=== PATIENT | male | born 1960 | race Caucasian/White ===

== ENCOUNTER 2017-08-31 21:49 | Emergency (ER) | payer MEDICAID ==
[~2017-08-31] VITALS: Ht 167.6 cm; Wt 113.4 kg
[2017-08-31 22:00] VITALS: BP 149/82
[2017-08-31 22:20] LABS: Basophils # (auto) 0.1 uL; Eosinophils # (auto) 0.2 uL; Eosinophils % (auto) 3.1 % (0.0-7.0); Monocytes # (auto) 0.6 uL; Neutrophils # (auto) 3.4 uL; Nucleated Red Blood Cells % 0.1 %; White Blood Cell 6.3 10^3/uL (4.4-10.8)
[2017-08-31 22:22] LABS: Basophils % (auto) 2.3 % (0.0-2.0); Hematocrit 42.2 % (41.0-53.0); Lymphocytes # (auto) 1.9 uL; Mean Corpuscular Hemoglobin 35.7 pg (28.0-32.0); Mean Corpuscular Hgb Conc. 35.6 g/dL (32.0-36.0); Mean Corpuscular Volume 100.2 fL (80.0-100.0); Monocytes % (auto) 9.5 % (0.0-12.0); Neutrophils % (auto) 54.1 % (37.0-80.0); Platelet Count (auto) 210 10^3/uL (140-450); Red Blood Cells 4.21 10^6/uL (4.5-5.90); Red Cell Distribution Width 13.6 % (11.8-14.3)
[2017-08-31 22:44] LABS: Alanine Aminotransferase 34 U/L (16-61); Albumin 3.5 g/dL (3.4-5.0); Anion Gap 10 (5-15); Aspartate Aminotransferase 26 U/L (15-37); BUN/Creatinine Ratio 14.6; Blood Urea Nitrogen 15 mg/dL (7-18); Calcium 9.4 mg/dL (8.5-10.1); Carbon Dioxide 30 mmol/L (21-32); Chloride 99 mmol/L (98-107); GFR African American 96 mL/min; GFR Non-African American 79 mL/min; Glucose 203 mg/dL (74-106); Magnesium 1.9 mg/dL (1.6-2.6); Potassium 4.7 mmol/L (3.5-5.1); Sodium 139 mmol/L (136-145)
[2017-08-31 22:48] LABS: Alkaline Phosphatase 54 U/L (45-117); Bilirubin, Total 0.3 mg/dL (0.2-1.0); Total Protein 7.8 g/dL (6.4-8.2)
== END 2017-09-01 | disposition left against medical advice (07) ==
LOC: ER 21:49
DX: R29.810 Facial weakness (principal); Z53.21 Procedure and treatment not carried out due to patient leaving prior to being seen by health care provider
CPT/HCPCS: 36415; 70450; 80053; 83735; 84484; 85025; 93005

== ENCOUNTER 2021-11-17 05:34 | Inpatient (IN) | payer BC, MEDICAID ==
[2021-11-17] VITALS (20 sets, daily range): BP systolic 114–151; BP diastolic 70–96
[~2021-11-17] VITALS: Ht 167.6 cm; Wt 116.5 kg
[2021-11-17] MEDS ORDERED: CLOPIDOGREL BISULFATE 75 MG TAB ONE ×2 (05:38→05:42)
[2021-11-17] MEDS ORDERED: HEPARIN SODIUM (PORCINE) 5000 UNITS/ML 1ML VIAL ONE ×2 (05:39→06:07)
[2021-11-17] MEDS ORDERED: HEPARIN SODIUM (PORCINE) 5000 UNITS/ML 1ML VIAL IV ONE (06:00)
[2021-11-17] MEDS ORDERED: CLOPIDOGREL BISULFATE 75 MG TAB PO ONE (06:00)
[2021-11-17] MEDS ORDERED: VERAPAMIL 2.5MG/ML INJ 2ML VIAL IV ONE (06:07)
[2021-11-17] MEDS ORDERED: ANGIOMAX 250 MG VIAL IV ONE (06:08)
[2021-11-17] MEDS ORDERED: MIDAZOLAM HCL 2MG/2ML 2ml VIAL (1mg/ml) ONE (06:08)
[2021-11-17] MEDS ORDERED: fentaNYL CITRATE 100 MCG/2 ML VL ONE (06:08)
[2021-11-17] MEDS ORDERED: LIDOCAINE 2%HCL (LOCAL ANESTH.) INJ 20ML MDV ONE (06:08)
[2021-11-17] MEDS ORDERED: SODIUM CHL 0.9% 0 ML ONE (06:09)
[2021-11-17] MEDS ORDERED: IODIXANOL 320MG/ML 100ML BTL IV ONE ×3 (06:10→07:54)
[2021-11-17 06:14] LABS: Albumin 2.8 g/dL (3.4-5.0); Calcium 8.9 mg/dL (8.5-10.1)
[2021-11-17 06:15] LABS: BUN/Creatinine Ratio 11.9
[2021-11-17] MEDS ORDERED: DOCUSATE SOD 100 MG CAP PO PRN ×2 (06:15→06:30)
[2021-11-17] MEDS ORDERED: ACETAMINOPHEN 325 MG TAB PO PRN ×2 (06:15→06:30)
[2021-11-17] MEDS ORDERED: HYDROcodone-ACET 5/325MG TAB PO PRN (06:15)
[2021-11-17] MEDS ORDERED: MORPHINE SULFATE INJ 2 MG/ml SYRG IV PRN ×3 (06:15→08:00)
[2021-11-17] MEDS ORDERED: NITROGLYCERIN 0.4 MG SL TAB SL PRN ×3 (06:15→08:00)
[2021-11-17] MEDS ORDERED: IPRATROPIUM BROM 0.5 MG/2.5ML INH SOL NEB PRN ×2 (06:15→06:30)
[2021-11-17] MEDS ORDERED: ALBUTEROL SULF 2.5 MG/0.5ML(0.5%) NEB SOLN NEB PRN ×2 (06:15→06:30)
[2021-11-17] MEDS ORDERED: ONDANSETRON HCL 4 MG/2 ML VIAL IV PRN ×2 (06:15→06:30)
[2021-11-17] MEDS ORDERED: SODIUM CHLORIDE 0.9% 1,000 ML IV SCH (06:15)
[2021-11-17] MEDS ORDERED: DEXTROSE (50%) 50ML SYRG IV PRN ×3 (06:15→08:15)
[2021-11-17 06:21] LABS: Basophils # (auto) 0.1 10 ^3/uL (0-0.2); Basophils % (auto) 0.5 % (0.0-2.0); Eosinophils # (auto) 0 10 ^3/uL (0-0.8); Eosinophils % (auto) 0.2 % (0.0-7.0); Hemoglobin 15.7 g/dL (13.5-17.5); Lymphocytes # (auto) 2.1 10 ^3/uL (0.4-5.4); Monocytes # (auto) 0.9 10 ^3/uL (0-1.3); Nucleated Red Blood Cells % 0.1 %
[2021-11-17 06:22] LABS: Hematocrit 46.4 % (41.0-53.0); Lymphocytes % (auto) 21.2 % (10.0-50.0); Mean Corpuscular Hemoglobin 35.1 pg (28.0-32.0); Mean Corpuscular Hgb Conc. 33.9 g/dL (32.0-36.0); Mean Corpuscular Volume 103.7 fL (80.0-100.0); Monocytes % (auto) 9.1 % (0.0-12.0); Red Blood Cells 4.48 10^6/uL (4.5-5.90); Red Cell Distribution Width 13.8 % (11.8-14.3); White Blood Cell 10.1 10^3/uL (4.4-10.8)
[2021-11-17 06:24] LABS: Total Protein 7.4 g/dL (6.4-8.2)
[2021-11-17] MEDS ORDERED: InsuLIN REG 1unit/0.01ml Soln (100units/ml) SC SCH ×4 (07:00→22:00)
[2021-11-17] MEDS ORDERED: ACCU-CHEK COMFORT CURVE STRIP VI SCH ×2 (07:00→07:15)
[2021-11-17] MEDS ORDERED: ALBUMIN 25% 100 ML IV ONE (07:00)
[2021-11-17] MEDS ORDERED: TICAGRELOR 90 MG TAB ONE (08:08)
[2021-11-17] MEDS: SODIUM CHLORIDE 0.9% 1,000 ML IV SCH ×2 (09:00→21:39)
[2021-11-17] MEDS ORDERED: GABAPENTIN 100 MG CAP ONE (09:50)
[2021-11-17] MEDS ORDERED: FAMOTIDINE (10MG/ML) 2ML VL IV SCH (10:00)
[2021-11-17] MEDS ORDERED: ASPirin 81 mg TAB PO SCH ×2 (10:00)
[2021-11-17] MEDS: ASPirin 81 mg TAB PO SCH (10:36)
[2021-11-17] MEDS: HYDROcodone-ACET 5/325MG TAB PO PRN ×2 (10:37→21:40)
[2021-11-17] MEDS: FAMOTIDINE (10MG/ML) 2ML VL IV SCH (10:38)
[2021-11-17] MEDS: LISINOPRIL 5 MG TAB PO SCH (10:38)
[2021-11-17] MEDS: ACCU-CHEK COMFORT CURVE STRIP VI SCH ×3 (11:30→21:41)
[2021-11-17] MEDS: InsuLIN REG 1unit/0.01ml Soln (100units/ml) SC SCH ×3 (11:45→21:48)
[2021-11-17] MEDS ORDERED: HEPARIN SODIUM (PORCINE) 5000 UNITS/ML 1ML VIAL SC SCH (14:00)
[2021-11-17] MEDS: GABAPENTIN 300 MG CAP PO SCH ×2 (14:46→21:40)
[2021-11-17] MEDS: HEPARIN SODIUM (PORCINE) 5000 UNITS/ML 1ML VIAL SC SCH ×2 (14:46→21:39)
[2021-11-17 15:57] LABS: Urine Bacteria FEW /hpf (None Seen); Urine Blood 3+ /uL (Negative); Urine Mucus FEW (None Seen); Urine WBC 9 /hpf (0 - 3)
[2021-11-17 16:04] LABS: Urine Specific Gravity > 1.050 (1.001-1.035)
[2021-11-17 16:07] LABS: Protein, Urine 95.9 mg/dL (0.0-11.9)
[2021-11-17] MEDS ORDERED: GABA300C10 PO (19:01)
[2021-11-17] MEDS ORDERED: ROPI0.5T18 PO (19:01)
[2021-11-17] MEDS ORDERED: RABE20TA19 PO (19:01)
[2021-11-17] MEDS ORDERED: TRAM50TA2 PO (19:01)
[2021-11-17] MEDS: TICAGRELOR 90 MG TAB PO SCH (21:39)
[2021-11-17] MEDS: ATORVASTATIN 20 MG TAB PO SCH (21:40)
[2021-11-18] VITALS (26 sets, daily range): BP systolic 91–122; BP diastolic 52–79
[2021-11-18] MEDS: ACCU-CHEK COMFORT CURVE STRIP VI SCH ×4 (06:02→21:14)
[2021-11-18] MEDS: InsuLIN REG 1unit/0.01ml Soln (100units/ml) SC SCH ×4 (06:02→21:20)
[2021-11-18] MEDS: GABAPENTIN 300 MG CAP PO SCH ×3 (06:03→21:12)
[2021-11-18] MEDS: HEPARIN SODIUM (PORCINE) 5000 UNITS/ML 1ML VIAL SC SCH (06:03)
[2021-11-18 06:15] LABS: Basophils # (auto) 0 10 ^3/uL (0-0.2); Basophils % (auto) 0.5 % (0.0-2.0); Eosinophils # (auto) 0.1 10 ^3/uL (0-0.8); Eosinophils % (auto) 0.8 % (0.0-7.0); Lymphocytes # (auto) 1.5 10 ^3/uL (0.4-5.4); Mean Corpuscular Hgb Conc. 33.5 g/dL (32.0-36.0); Red Cell Distribution Width 13.7 % (11.8-14.3)
[2021-11-18 06:18] LABS: Hematocrit 44.3 % (41.0-53.0); Hemoglobin 14.9 g/dL (13.5-17.5); Lymphocytes % (auto) 20.1 % (10.0-50.0); Mean Corpuscular Hemoglobin 35.1 pg (28.0-32.0); Mean Corpuscular Volume 104.6 fL (80.0-100.0); Monocytes # (auto) 0.8 10 ^3/uL (0-1.3); Monocytes % (auto) 10.2 % (0.0-12.0); Neutrophils # (auto) 5.2 10 ^3/uL (1.6-8.6); Neutrophils % (auto) 68.4 % (37.0-80.0); Nucleated Red Blood Cells % 0.1 %; Red Blood Cells 4.23 10^6/uL (4.5-5.90); White Blood Cell 7.5 10^3/uL (4.4-10.8)
[2021-11-18 06:25] LABS: Calcium 8.4 mg/dL (8.5-10.1); Potassium 4.6 mmol/L (3.5-5.1)
[2021-11-18 06:27] LABS: BUN/Creatinine Ratio 18.6; Phosphorus 3.6 mg/dL (2.5-4.90)
[2021-11-18 06:30] LABS: INR 1.13 (0.9-1.15)
[2021-11-18] MEDS: LISINOPRIL 5 MG TAB PO SCH (10:00)
[2021-11-18] MEDS: FAMOTIDINE (10MG/ML) 2ML VL IV SCH (10:29)
[2021-11-18] MEDS: TICAGRELOR 90 MG TAB PO SCH ×2 (10:30→21:12)
[2021-11-18] MEDS: ASPirin 81 mg TAB PO SCH (10:30)
[2021-11-18] MEDS: SODIUM CHLORIDE 0.9% 1,000 ML IV SCH (14:03)
[2021-11-18] MEDS: ATORVASTATIN 20 MG TAB PO SCH (21:12)
[2021-11-19] VITALS (23 sets, daily range): BP systolic 85–155; BP diastolic 48–95
[2021-11-19] MEDS ORDERED: TEMAZEPAM 15 MG CAP PO ONE (00:45)
[2021-11-19] MEDS: GABAPENTIN 300 MG CAP PO SCH ×3 (06:22→21:33)
[2021-11-19] MEDS: ACCU-CHEK COMFORT CURVE STRIP VI SCH ×4 (06:23→21:49)
[2021-11-19] MEDS: InsuLIN REG 1unit/0.01ml Soln (100units/ml) SC SCH ×4 (06:26→21:53)
[2021-11-19] MEDS: SODIUM CHLORIDE 0.9% 1,000 ML IV SCH (06:27)
[2021-11-19] MEDS: TICAGRELOR 90 MG TAB PO SCH ×2 (10:14→21:33)
[2021-11-19] MEDS: ASPirin 81 mg TAB PO SCH (10:14)
[2021-11-19] MEDS: FAMOTIDINE (10MG/ML) 2ML VL IV SCH (10:15)
[2021-11-19 10:36] LABS: Basophils # (auto) 0 10 ^3/uL (0-0.2); Basophils % (auto) 0.4 % (0.0-2.0); Eosinophils # (auto) 0.1 10 ^3/uL (0-0.8); Eosinophils % (auto) 2.3 % (0.0-7.0); Hematocrit 43.6 % (41.0-53.0); Hemoglobin 14.7 g/dL (13.5-17.5); Lymphocytes % (auto) 15.2 % (10.0-50.0); Mean Corpuscular Hemoglobin 35.2 pg (28.0-32.0); Mean Corpuscular Hgb Conc. 33.8 g/dL (32.0-36.0); Mean Corpuscular Volume 103.9 fL (80.0-100.0); Monocytes # (auto) 0.6 10 ^3/uL (0-1.3); Monocytes % (auto) 8.5 % (0.0-12.0); Neutrophils # (auto) 4.8 10 ^3/uL (1.6-8.6); Neutrophils % (auto) 73.6 % (37.0-80.0); Nucleated Red Blood Cells % 0.1 %; Red Blood Cells 4.19 10^6/uL (4.5-5.90); Red Cell Distribution Width 13.6 % (11.8-14.3); White Blood Cell 6.5 10^3/uL (4.4-10.8)
[2021-11-19 10:55] LABS: Calcium 8.2 mg/dL (8.5-10.1); Potassium 4.5 mmol/L (3.5-5.1)
[2021-11-19 12:03] LABS: INR 1.1 (0.9-1.15); Partial Thromboplastin Time 28.5 sec (24.6-33.4)
[2021-11-19] MEDS ORDERED: LIDOCAINE 2%HCL (LOCAL ANESTH.) INJ 10ml MDV ONE (12:23)
[2021-11-19] MEDS ORDERED: MIDAZOLAM HCL 2MG/2ML 2ml VIAL (1mg/ml) ONE (12:33)
[2021-11-19] MEDS ORDERED: fentaNYL CITRATE 100 MCG/2 ML VL ONE (12:33)
[2021-11-19] MEDS ORDERED: VANCOMYCIN HCL 1000 MG VL ONE (12:33)
[2021-11-19] MEDS ORDERED: VANCOMYCIN 1GM/250ML 250 ML IV ONE (12:34)
[2021-11-19] MEDS ORDERED: ACETAMINOPHEN 325 MG TAB PO PRN (14:00)
[2021-11-19] MEDS: ATORVASTATIN 20 MG TAB PO SCH (21:33)
[2021-11-19] MEDS: HYDROcodone-ACET 5/325MG TAB PO PRN (21:33)
[2021-11-20] VITALS (21 sets, daily range): BP systolic 98–160; BP diastolic 50–91
[2021-11-20 04:16] LABS: Albumin 2.2 g/dL (3.4-5.0); Potassium 4.5 mmol/L (3.5-5.1)
[2021-11-20 04:19] LABS: BUN/Creatinine Ratio 25.2; Bilirubin, Total 0.9 mg/dL (0.2-1.0); Total Protein 6.3 g/dL (6.4-8.2)
[2021-11-20] MEDS: GABAPENTIN 300 MG CAP PO SCH ×3 (06:17→21:33)
[2021-11-20] MEDS: ACCU-CHEK COMFORT CURVE STRIP VI SCH ×4 (06:17→21:33)
[2021-11-20] MEDS: InsuLIN REG 1unit/0.01ml Soln (100units/ml) SC SCH ×4 (06:55→21:42)
[2021-11-20] MEDS: FAMOTIDINE (10MG/ML) 2ML VL IV SCH (09:31)
[2021-11-20] MEDS: ASPirin 81 mg TAB PO SCH (09:31)
[2021-11-20] MEDS: TICAGRELOR 90 MG TAB PO SCH ×2 (09:31→21:32)
[2021-11-20] MEDS ORDERED: FUROSEMIDE 20 MG/2 ML VIAL IV ONE (10:00)
[2021-11-20] MEDS: CARVEDILOL 3.125 MG TAB PO SCH ×2 (10:35→21:33)
[2021-11-20] MEDS ORDERED: ARTIFICIAL TEARS 15ml EACHEYE PRN (13:15)
[2021-11-20] MEDS: FUROSEMIDE 20 MG/2 ML VIAL IV SCH (14:18)
[2021-11-20] MEDS: HYDROcodone-ACET 5/325MG TAB PO PRN (21:08)
[2021-11-20] MEDS: ATORVASTATIN 20 MG TAB PO SCH (21:33)
[2021-11-21] VITALS (10 sets, daily range): BP systolic 103–144; BP diastolic 60–85
[2021-11-21 05:28] LABS: Basophils # (auto) 0 10 ^3/uL (0-0.2); Eosinophils # (auto) 0.3 10 ^3/uL (0-0.8); Eosinophils % (auto) 4.5 % (0.0-7.0); Hemoglobin 14.3 g/dL (13.5-17.5); Monocytes # (auto) 0.7 10 ^3/uL (0-1.3); Neutrophils # (auto) 3.7 10 ^3/uL (1.6-8.6); White Blood Cell 5.9 10^3/uL (4.4-10.8)
[2021-11-21 05:30] LABS: Basophils % (auto) 0.5 % (0.0-2.0); Hematocrit 41.3 % (41.0-53.0); Lymphocytes # (auto) 1.2 10 ^3/uL (0.4-5.4); Lymphocytes % (auto) 20.4 % (10.0-50.0); Mean Corpuscular Hemoglobin 35.4 pg (28.0-32.0); Mean Corpuscular Hgb Conc. 34.5 g/dL (32.0-36.0); Mean Corpuscular Volume 102.5 fL (80.0-100.0); Monocytes % (auto) 11.4 % (0.0-12.0); Neutrophils % (auto) 63.2 % (37.0-80.0); Nucleated Red Blood Cells % 0.2 %; Red Blood Cells 4.03 10^6/uL (4.5-5.90); Red Cell Distribution Width 13.7 % (11.8-14.3)
[2021-11-21 05:34] LABS: INR 1.21 (0.9-1.15); Partial Thromboplastin Time 27.8 sec (24.6-33.4)
[2021-11-21 05:44] LABS: Calcium 8.9 mg/dL (8.5-10.1); Potassium 4.2 mmol/L (3.5-5.1)
[2021-11-21 05:46] LABS: BUN/Creatinine Ratio 23.7
[2021-11-21] MEDS: GABAPENTIN 300 MG CAP PO SCH ×4 (06:00→22:04)
[2021-11-21] MEDS: FUROSEMIDE 20 MG/2 ML VIAL IV SCH ×2 (06:50→17:49)
[2021-11-21] MEDS: ACCU-CHEK COMFORT CURVE STRIP VI SCH ×4 (06:50→22:04)
[2021-11-21] MEDS: InsuLIN REG 1unit/0.01ml Soln (100units/ml) SC SCH ×4 (07:52→22:14)
[2021-11-21] MEDS: ASPirin 81 mg TAB PO SCH (09:55)
[2021-11-21] MEDS: TICAGRELOR 90 MG TAB PO SCH ×2 (09:55→22:03)
[2021-11-21] MEDS: CARVEDILOL 3.125 MG TAB PO SCH ×2 (09:56→22:03)
[2021-11-21] MEDS ORDERED: IODIXANOL 320MG/ML 100ML BTL IV ONE (11:25)
[2021-11-21] MEDS ORDERED: LIDOCAINE 2%HCL (LOCAL ANESTH.) INJ 20ML MDV ONE (11:25)
[2021-11-21] MEDS ORDERED: ANGIOMAX 250 MG VIAL IV ONE (11:41)
[2021-11-21] MEDS ORDERED: fentaNYL CITRATE 100 MCG/2 ML VL ONE (11:42)
[2021-11-21] MEDS ORDERED: VERAPAMIL 2.5MG/ML INJ 2ML VIAL IV ONE (11:42)
[2021-11-21] MEDS ORDERED: MIDAZOLAM HCL 2MG/2ML 2ml VIAL (1mg/ml) ONE (11:42)
[2021-11-21] MEDS ORDERED: HEPARIN SODIUM (PORCINE) 5000 UNITS/ML 1ML VIAL ONE (11:42)
[2021-11-21] MEDS: ATORVASTATIN 20 MG TAB PO SCH (22:03)
[2021-11-21] MEDS: HYDROcodone-ACET 5/325MG TAB PO PRN (22:04)
[2021-11-22 05:00] VITALS: BP 101/64
[2021-11-22 06:45] LABS: Anion Gap 8 (5-15); BUN/Creatinine Ratio 23.5; Blood Urea Nitrogen 31 mg/dL (7-18); Calcium 8.9 mg/dL (8.5-10.1); Carbon Dioxide 29 mmol/L (21-32); Chloride 98 mmol/L (98-107); GFR African American 71 mL/min; GFR Non-African American 59 mL/min; Glucose 214 mg/dL (74-106); Potassium 4.5 mmol/L (3.5-5.1); Sodium 135 mmol/L (136-145)
[2021-11-22] MEDS: ACCU-CHEK COMFORT CURVE STRIP VI SCH ×2 (06:46→11:30)
[2021-11-22] MEDS: FUROSEMIDE 20 MG/2 ML VIAL IV SCH (06:50)
[2021-11-22] MEDS: GABAPENTIN 300 MG CAP PO SCH ×2 (06:50→14:00)
[2021-11-22] MEDS: InsuLIN REG 1unit/0.01ml Soln (100units/ml) SC SCH ×2 (06:50→14:32)
[2021-11-22 09:00] VITALS: BP 108/59
[2021-11-22] MEDS: TICAGRELOR 90 MG TAB PO SCH (10:31)
[2021-11-22] MEDS: ASPirin 81 mg TAB PO SCH (10:31)
[2021-11-22] MEDS: CARVEDILOL 3.125 MG TAB PO SCH (10:32)
[2021-11-22] MEDS ORDERED: CARV6.25 PO (10:40)
[2021-11-22] MEDS ORDERED: ATO40T PO (10:40)
[2021-11-22] MEDS ORDERED: FURO1TAB31 PO (10:40)
[2021-11-22] MEDS ORDERED: ASPI81CH49 PO (10:40)
[2021-11-22] MEDS ORDERED: POTA10TA51 PO (10:40)
[2021-11-22] MEDS ORDERED: TICA90TA PO (10:40)
[2021-11-22 13:09] VITALS: BP 108/59
== END 2021-11-22 16:32 | disposition home or self-care (01) | DRG 242 ==
LOC: EDUNIT# 05:34 → ER 05:34 → EDBD 05:34 → ER 06:19 → TELE-WESTW 06:19 → TELE 06:21 → ICU WEST 07:46 → TELE-WESTW 11-20 18:11
PROVIDERS: ADMIT Internal Medicine; ATTEND Family Medicine
PROC: 027135Z Dilation of Coronary Artery, Two Arteries with Two Drug-eluting Intraluminal Devices, Percutaneous Approach (ICD-10-PCS; principal; 2021-11-17)
PROC: B241ZZ3 Ultrasonography of Multiple Coronary Arteries, Intravascular (ICD-10-PCS; 2021-11-17)
PROC: 4A023N7 Measurement of Cardiac Sampling and Pressure, Left Heart, Percutaneous Approach (ICD-10-PCS; 2021-11-17)
PROC: 5A1223Z Performance of Cardiac Pacing, Continuous (ICD-10-PCS; 2021-11-17)
PROC: B211YZZ Fluoroscopy of Multiple Coronary Arteries using Other Contrast (ICD-10-PCS; 2021-11-17)
PROC: B215YZZ Fluoroscopy of Left Heart using Other Contrast (ICD-10-PCS; 2021-11-17)
PROC: 5A09357 Assistance with Respiratory Ventilation, Less than 24 Consecutive Hours, Continuous Positive Airway Pressure (ICD-10-PCS; 2021-11-18)
PROC: 0JH606Z Insertion of Pacemaker, Dual Chamber into Chest Subcutaneous Tissue and Fascia, Open Approach (ICD-10-PCS; 2021-11-19)
PROC: 02H63JZ Insertion of Pacemaker Lead into Right Atrium, Percutaneous Approach (ICD-10-PCS; 2021-11-19)
PROC: 02HK3JZ Insertion of Pacemaker Lead into Right Ventricle, Percutaneous Approach (ICD-10-PCS; 2021-11-19)
PROC: 027135Z Dilation of Coronary Artery, Two Arteries with Two Drug-eluting Intraluminal Devices, Percutaneous Approach (ICD-10-PCS; 2021-11-21)
PROC: B240ZZ3 Ultrasonography of Single Coronary Artery, Intravascular (ICD-10-PCS; 2021-11-21)
PROC: 4A023N7 Measurement of Cardiac Sampling and Pressure, Left Heart, Percutaneous Approach (ICD-10-PCS; 2021-11-21)
PROC: B211YZZ Fluoroscopy of Multiple Coronary Arteries using Other Contrast (ICD-10-PCS; 2021-11-21)
DX: I21.3 ST elevation (STEMI) myocardial infarction of unspecified site (principal); I50.23 Acute on chronic systolic (congestive) heart failure; J96.01 Acute respiratory failure with hypoxia; N17.0 Acute kidney failure with tubular necrosis; I44.2 Atrioventricular block, complete; J98.11 Atelectasis; E44.0 Moderate protein-calorie malnutrition; E87.1 Hypo-osmolality and hyponatremia; Z68.41 Body mass index [BMI] 40.0-44.9, adult; I13.0 Hypertensive heart and chronic kidney disease with heart failure and stage 1 through stage 4 chronic kidney disease, or unspecified chronic kidney disease; G47.33 Obstructive sleep apnea (adult) (pediatric); Z20.822 Contact with and (suspected) exposure to COVID-19; I25.10 Atherosclerotic heart disease of native coronary artery without angina pectoris; N18.31 Chronic kidney disease, stage 3a; E11.40 Type 2 diabetes mellitus with diabetic neuropathy, unspecified; E11.65 Type 2 diabetes mellitus with hyperglycemia; E88.09 Other disorders of plasma-protein metabolism, not elsewhere classified; E11.22 Type 2 diabetes mellitus with diabetic chronic kidney disease; E11.51 Type 2 diabetes mellitus with diabetic peripheral angiopathy without gangrene; E66.01 Morbid (severe) obesity due to excess calories; E78.00 Pure hypercholesterolemia, unspecified; Z79.4 Long term (current) use of insulin; I25.2 Old myocardial infarction; Z82.49 Family history of ischemic heart disease and other diseases of the circulatory system; Z87.891 Personal history of nicotine dependence; Z88.0 Allergy status to penicillin; Z88.8 Allergy status to other drugs, medicaments and biological substances
CPT/HCPCS: 33208; 36415; 70450; 71045; 80048; 80053; 81001; 82306; 82570; 82962; 83036; 83735; 83880; 84100; 84156; 84300; 84443; 84484; 84550; 85025; 85610; 85730; 87081; 92928; 92929; 92978; 93005; 93306; 93458; 94660; 96361; 96374; 96375; 99152; 99153; 99291; C1751; C1769; C1785; C1874; C1887; G0378; J1815; J2001; J2250; J3490; Q9967

== ENCOUNTER 2021-11-29 11:57 | Inpatient (IN) | payer BC, MEDICAID ==
[~2021-11-29] VITALS: Ht 167.6 cm; Wt 104.5 kg
[~2021-11-29 11:57] MED LIST: ASPI81CH49 PO; ATO40T PO; CARV6.25 PO; FURO1TAB31 PO; GABA300C10 PO; POTA10TA51 PO; RABE20TA19 PO; ROPI0.5T18 PO; TICA90TA PO; TRAM50TA2 PO
[2021-11-29 13:29] LABS: Basophils # (auto) 0.1 10 ^3/uL (0-0.2); Basophils % (auto) 0.8 % (0.0-2.0); Eosinophils # (auto) 0.2 10 ^3/uL (0-0.8); Lymphocytes # (auto) 0.9 10 ^3/uL (0.4-5.4); Mean Corpuscular Hgb Conc. 33.5 g/dL (32.0-36.0); Neutrophils # (auto) 4.9 10 ^3/uL (1.6-8.6)
[2021-11-29 13:31] LABS: Eosinophils % (auto) 2.7 % (0.0-7.0); Hematocrit 42.9 % (41.0-53.0); Hemoglobin 14.4 g/dL (13.5-17.5); Lymphocytes % (auto) 14.5 % (10.0-50.0); Mean Corpuscular Hemoglobin 34.4 pg (28.0-32.0); Mean Corpuscular Volume 102.5 fL (80.0-100.0); Monocytes # (auto) 0.3 10 ^3/uL (0-1.3); Monocytes % (auto) 5.4 % (0.0-12.0); Neutrophils % (auto) 76.6 % (37.0-80.0); Nucleated Red Blood Cells % 0.1 %; Red Blood Cells 4.19 10^6/uL (4.5-5.90); Red Cell Distribution Width 13.4 % (11.8-14.3); White Blood Cell 6.3 10^3/uL (4.4-10.8)
[2021-11-29 13:48] LABS: Albumin 2.9 g/dL (3.4-5.0); Calcium 8.9 mg/dL (8.5-10.1); Magnesium 2.2 mg/dL (1.6-2.6); Potassium 4.8 mmol/L (3.5-5.1)
[2021-11-29 13:52] LABS: BUN/Creatinine Ratio 20.3; Bilirubin, Total 0.7 mg/dL (0.2-1.0); Total Protein 7.8 g/dL (6.4-8.2)
[2021-11-29] MEDS ORDERED: GABAPENTIN 300 MG CAP PO ONE (14:45)
[2021-11-29] MEDS ORDERED: ASPirin 81 mg TAB PO ONE (14:45)
[2021-11-29] MEDS ORDERED: MORPHINE SULFATE INJ 2 MG/ml SYRG IV PRN (17:00)
[2021-11-29] MEDS ORDERED: NITROGLYCERIN 0.4 MG SL TAB SL PRN (17:00)
[2021-11-29] MEDS ORDERED: DEXTROSE (50%) 50ML SYRG IV PRN (17:15)
[2021-11-29] MEDS ORDERED: FUROSEMIDE 40 MG/4 ML VIAL IV ONE (17:15)
[2021-11-29] MEDS: ACCU-CHEK COMFORT CURVE STRIP VI SCH (22:00)
[2021-11-29] MEDS ORDERED: GABAPENTIN 300 MG CAP PO SCH (22:00)
[2021-11-29 22:36] LABS: Urine Bacteria FEW /hpf (None Seen); Urine Blood TRACE /uL (Negative); Urine Mucus FEW (None Seen); Urine Specific Gravity 1.013 (1.001-1.035); Urine WBC 1 /hpf (0 - 3)
[2021-11-29] MEDS: ATORVASTATIN 20 MG TAB PO SCH (22:42)
[2021-11-29] MEDS: CARVEDILOL 3.125 MG TAB PO SCH (22:45)
[2021-11-29] MEDS: InsuLIN REG 1unit/0.01ml Soln (100units/ml) SC SCH (22:46)
[2021-11-30] VITALS (11 sets, daily range): BP systolic 119–151; BP diastolic 69–84
[2021-11-30] MEDS: GABAPENTIN 300 MG CAP PO SCH ×4 (00:04→23:07)
[2021-11-30] MEDS ORDERED: GABAPENTIN 100 MG CAP PO ONE (00:15)
[2021-11-30] MEDS: InsuLIN REG 1unit/0.01ml Soln (100units/ml) SC SCH ×4 (06:06→23:03)
[2021-11-30] MEDS: ACCU-CHEK COMFORT CURVE STRIP VI SCH ×4 (06:07→23:04)
[2021-11-30 06:21] LABS: Basophils # (auto) 0.1 10 ^3/uL (0-0.2); Eosinophils # (auto) 0.2 10 ^3/uL (0-0.8); Mean Corpuscular Hgb Conc. 34.3 g/dL (32.0-36.0); Mean Corpuscular Volume 102.6 fL (80.0-100.0); Monocytes # (auto) 0.6 10 ^3/uL (0-1.3); Nucleated Red Blood Cells % 0.1 %
[2021-11-30 06:23] LABS: Basophils % (auto) 0.8 % (0.0-2.0); Eosinophils % (auto) 3.7 % (0.0-7.0); Hematocrit 42.8 % (41.0-53.0); Hemoglobin 14.6 g/dL (13.5-17.5); Lymphocytes # (auto) 1.6 10 ^3/uL (0.4-5.4); Lymphocytes % (auto) 23.6 % (10.0-50.0); Mean Corpuscular Hemoglobin 35.1 pg (28.0-32.0); Monocytes % (auto) 9.1 % (0.0-12.0); Neutrophils # (auto) 4.1 10 ^3/uL (1.6-8.6); Neutrophils % (auto) 62.8 % (37.0-80.0); Red Blood Cells 4.17 10^6/uL (4.5-5.90); Red Cell Distribution Width 13.3 % (11.8-14.3); White Blood Cell 6.6 10^3/uL (4.4-10.8)
[2021-11-30 06:25] LABS: Albumin 2.9 g/dL (3.4-5.0); Calcium 9.3 mg/dL (8.5-10.1); Potassium 5.1 mmol/L (3.5-5.1)
[2021-11-30 06:29] LABS: Bilirubin, Total 0.6 mg/dL (0.2-1.0); Total Protein 7.7 g/dL (6.4-8.2)
[2021-11-30] MEDS: POTASSIUM CHL 10 Meq TABLET PO SCH (09:26)
[2021-11-30] MEDS: FUROSEMIDE 40 MG/4 ML VIAL IV SCH (09:38)
[2021-11-30] MEDS: TICAGRELOR 90 MG TAB PO SCH ×2 (09:39→23:07)
[2021-11-30] MEDS: ASPirin 81 mg TAB PO SCH (09:39)
[2021-11-30] MEDS: CARVEDILOL 3.125 MG TAB PO SCH ×2 (09:39→23:10)
[2021-11-30] MEDS ORDERED: ENOXAPARIN SOD 40 MG/0.4 ML SYRINGE SC SCH (10:00)
[2021-11-30 11:03] LABS: INR 1.08 (0.9-1.15); Partial Thromboplastin Time 23.5 sec (24.6-33.4)
[2021-11-30] MEDS ORDERED: ANGIOMAX 250 MG VIAL IV ONE (14:44)
[2021-11-30] MEDS ORDERED: fentaNYL CITRATE 100 MCG/2 ML VL ONE (14:45)
[2021-11-30] MEDS ORDERED: MIDAZOLAM HCL 2MG/2ML 2ml VIAL (1mg/ml) ONE (14:45)
[2021-11-30] MEDS ORDERED: VERAPAMIL 2.5MG/ML INJ 2ML VIAL IV ONE (14:45)
[2021-11-30] MEDS ORDERED: HEPARIN SODIUM (PORCINE) 5000 UNITS/ML 1ML VIAL ONE (14:45)
[2021-11-30] MEDS ORDERED: SODIUM CHL 0.9% 0 ML ONE (14:45)
[2021-11-30] MEDS ORDERED: IODIXANOL 320MG/ML 100ML BTL IV ONE (14:47)
[2021-11-30] MEDS ORDERED: LIDOCAINE 2%HCL (LOCAL ANESTH.) INJ 20ML MDV ONE (14:48)
[2021-11-30] MEDS: ATORVASTATIN 20 MG TAB PO SCH (23:08)
[2021-12-01 05:45] VITALS: BP 110/64
[2021-12-01] MEDS: GABAPENTIN 300 MG CAP PO SCH (06:40)
[2021-12-01] MEDS: ACCU-CHEK COMFORT CURVE STRIP VI SCH (06:40)
[2021-12-01] MEDS: InsuLIN REG 1unit/0.01ml Soln (100units/ml) SC SCH (06:49)
[2021-12-01] MEDS: FUROSEMIDE 40 MG/4 ML VIAL IV SCH (09:48)
[2021-12-01] MEDS: ASPirin 81 mg TAB PO SCH (09:48)
[2021-12-01] MEDS: TICAGRELOR 90 MG TAB PO SCH (09:48)
[2021-12-01] MEDS: CARVEDILOL 3.125 MG TAB PO SCH (09:49)
[2021-12-01] MEDS: POTASSIUM CHL 10 Meq TABLET PO SCH (09:50)
[2021-12-01 10:29] VITALS: BP 105/65
== END 2021-12-01 11:43 | disposition home or self-care (01) | DRG 280 ==
LOC: EDBD 11:57 → ER 11:59 → TELE 16:55 → TELE-CENTR 23:52
PROVIDERS: ADMIT Registered Nurse; ATTEND Family Medicine
PROC: 4A023N7 Measurement of Cardiac Sampling and Pressure, Left Heart, Percutaneous Approach (ICD-10-PCS; principal; 2021-11-30)
PROC: B211YZZ Fluoroscopy of Multiple Coronary Arteries using Other Contrast (ICD-10-PCS; 2021-11-30)
PROC: B215YZZ Fluoroscopy of Left Heart using Other Contrast (ICD-10-PCS; 2021-11-30)
DX: I21.4 Non-ST elevation (NSTEMI) myocardial infarction (principal); I50.23 Acute on chronic systolic (congestive) heart failure; I13.0 Hypertensive heart and chronic kidney disease with heart failure and stage 1 through stage 4 chronic kidney disease, or unspecified chronic kidney disease; E11.22 Type 2 diabetes mellitus with diabetic chronic kidney disease; E11.65 Type 2 diabetes mellitus with hyperglycemia; E66.01 Morbid (severe) obesity due to excess calories; I25.10 Atherosclerotic heart disease of native coronary artery without angina pectoris; N18.9 Chronic kidney disease, unspecified; E88.09 Other disorders of plasma-protein metabolism, not elsewhere classified; E11.40 Type 2 diabetes mellitus with diabetic neuropathy, unspecified; Z79.4 Long term (current) use of insulin; Z83.438 Family history of other disorder of lipoprotein metabolism and other lipidemia; Z95.0 Presence of cardiac pacemaker; I25.2 Old myocardial infarction; Z95.5 Presence of coronary angioplasty implant and graft; Z88.0 Allergy status to penicillin; Z88.8 Allergy status to other drugs, medicaments and biological substances; Z68.37 Body mass index [BMI] 37.0-37.9, adult
CPT/HCPCS: 36415; 71045; 80053; 81001; 82962; 83735; 83880; 84484; 85025; 85379; 85610; 85730; 87081; 93005; 93458; 93970; 99152; 99291; G0378; J1815; J2250; Q9967

== ENCOUNTER → 2022-06-03 | Outpatient (CLI) | payer BC, MEDICAID | END | disposition home or self-care (01) | LOC: XYW 09:25 | PROVIDERS: ATTEND Internal Medicine | DX: I08.1 Rheumatic disorders of both mitral and tricuspid valves (principal); I27.20 Pulmonary hypertension, unspecified; I50.22 Chronic systolic (congestive) heart failure | CPT/HCPCS: 93306 ==

== ENCOUNTER 2022-09-05 13:05 | Inpatient (IN) | payer BC, MEDICAID ==
[~2022-09-05] VITALS: Ht 170.2 cm; Wt 102.0 kg
[~2022-09-05 13:05] MED LIST changes: +GABA-1250 PO; -GABA300C10 PO; -ROPI0.5T18 PO; +ROPI0.5T4 PO
[2022-09-05] MEDS ORDERED: GABAPENTIN 300 MG CAP PO ONE (14:15)
[2022-09-05] MEDS ORDERED: VANCOMYCIN PER PHARMACY 0 MG IV SCH ×2 (14:45→19:15)
[2022-09-05] MEDS ORDERED: PIPERACILLIN-TAZOB 3.375GM 100 ML IV ONE (14:45)
[2022-09-05 15:02] LABS: Albumin 1.8 g/dL (3.4-5.0); Anion Gap 7 (5-15); Blood Urea Nitrogen 31 mg/dL (7-18); Calcium 8.5 mg/dL (8.5-10.1); Carbon Dioxide 26 mmol/L (21-32); Chloride 94 mmol/L (98-107); Glucose 221 mg/dL (74-106); Potassium 4.2 mmol/L (3.5-5.1); Sodium 127 mmol/L (136-145)
[2022-09-05 15:06] LABS: Lactic Acid w/Reflex 2.3 mmol/L (0.4-2.0)
[2022-09-05 15:10] LABS: Alanine Aminotransferase 22 U/L (16-61); Alkaline Phosphatase 117 U/L (45-117); Aspartate Aminotransferase 28 U/L (15-37); BUN/Creatinine Ratio 21.7 (10.0-20.0); Bilirubin, Total 0.9 mg/dL (0.2-1.0); Creatine Kinase IFCC 55 U/L (39-308); GFR African American 64 mL/min; GFR Non-African American 53 mL/min; Total Protein 8.4 g/dL (6.4-8.2)
[2022-09-05 15:18] LABS: CRP High Sensitivity > 19.0 mg/dL (< 0.3)
[2022-09-05 16:19] LABS: Basophils # (auto) 0.2 10 ^3/uL (0-0.2); Basophils % (auto) 1.2 % (0.0-2.0); Eosinophils # (auto) 0 10 ^3/uL (0-0.8); Hematocrit 34.7 % (41.0-53.0); Hemoglobin 11.6 g/dL (13.5-17.5); Lymphocytes # (auto) 0.6 10 ^3/uL (0.4-5.4); Lymphocytes % (auto) 3.4 % (10.0-50.0); Mean Corpuscular Hgb Conc. 33.4 g/dL (32.0-36.0); Mean Corpuscular Volume 95.9 fL (80.0-100.0); Monocytes # (auto) 0.8 10 ^3/uL (0-1.3); Monocytes % (auto) 4.4 % (0.0-12.0); Neutrophils # (auto) 16.3 10 ^3/uL (1.6-8.6); Red Blood Cells 3.62 10^6/uL (4.5-5.90); Red Cell Distribution Width 16.2 % (11.8-14.3)
[2022-09-05] MEDS ORDERED: VANCOMYCIN 1GM/250ML 250 ML IV ONE ×2 (16:30→19:45)
[2022-09-05] MEDS: VANCOMYCIN 1GM/250ML 250 ML IV SCH ×2 (18:16→22:39)
[2022-09-05] MEDS ORDERED: ROPINIROLE HYDROCHLORIDE 0.5 MG PO SCH (19:15)
[2022-09-05] MEDS ORDERED: ONDANSETRON HCL 4 MG/2 ML VIAL IV PRN (19:15)
[2022-09-05] MEDS ORDERED: MORPHINE SULFATE INJ 2 MG/ml SYRG IV PRN (19:15)
[2022-09-05] MEDS ORDERED: DEXTROSE (50%) 50ML SYRG IV PRN (19:15)
[2022-09-05] MEDS ORDERED: SODIUM CHLORIDE 0.9% 2,000 ML IV ONE (19:30)
[2022-09-05] MEDS: SODIUM CHLORIDE 0.9% 1,000 ML IV SCH (19:34)
[2022-09-05 20:08] LABS: Albumin 1.7 g/dL (3.4-5.0); Calcium 8.1 mg/dL (8.5-10.1); Potassium 4.3 mmol/L (3.5-5.1)
[2022-09-05 20:11] LABS: BUN/Creatinine Ratio 21.2 (10.0-20.0); Bilirubin, Total 0.8 mg/dL (0.2-1.0); Total Protein 8.2 g/dL (6.4-8.2)
[2022-09-05] MEDS: ENOXAPARIN SOD 40 MG/0.4 ML SYRINGE SC SCH (20:46)
[2022-09-05] MEDS: TICAGRELOR 90 MG TAB PO SCH (20:47)
[2022-09-05] MEDS: CARVEDILOL 3.125 MG TAB PO SCH (20:48)
[2022-09-05] MEDS: GABAPENTIN 300 MG CAP PO SCH (20:48)
[2022-09-05 21:05] LABS: Magnesium 2.2 mg/dL (1.6-2.6); Phosphorus 2.8 mg/dL (2.5-4.90); Uric Acid 6.8 mg/dL (3.5-7.2)
[2022-09-05] MEDS: CEFEPIME 2 GM in SODIUM CHL 0.9% 50 ML IV SCH (23:57)
[2022-09-06] MEDS: ACCU-CHEK COMFORT CURVE STRIP VI SCH ×5 (00:24→23:37)
[2022-09-06] MEDS: InsuLIN REG 1unit/0.01ml Soln (100units/ml) SC SCH ×5 (00:31→23:44)
[2022-09-06] MEDS: SODIUM CHLORIDE 0.9% 1,000 ML IV SCH ×2 (04:14→14:45)
[2022-09-06] MEDS: GABAPENTIN 300 MG CAP PO SCH ×3 (06:29→23:18)
[2022-09-06 06:38] LABS: Albumin 1.4 g/dL (3.4-5.0); Calcium 8.1 mg/dL (8.5-10.1); Potassium 3.8 mmol/L (3.5-5.1)
[2022-09-06 06:42] LABS: BUN/Creatinine Ratio 21.4 (10.0-20.0); Bilirubin, Total 0.7 mg/dL (0.2-1.0); Total Protein 6.9 g/dL (6.4-8.2)
[2022-09-06 06:48] LABS: Basophils # (auto) 0 10 ^3/uL (0-0.2); Basophils % (auto) 0.1 % (0.0-2.0); Eosinophils # (auto) 0 10 ^3/uL (0-0.8); Hematocrit 28.7 % (41.0-53.0); Hemoglobin 9.8 g/dL (13.5-17.5); Lymphocytes # (auto) 0.9 10 ^3/uL (0.4-5.4); Lymphocytes % (auto) 5.5 % (10.0-50.0); Mean Corpuscular Hemoglobin 32.4 pg (28.0-32.0); Mean Corpuscular Hgb Conc. 34.3 g/dL (32.0-36.0); Mean Corpuscular Volume 94.6 fL (80.0-100.0); Monocytes # (auto) 1.1 10 ^3/uL (0-1.3); Neutrophils # (auto) 13.5 10 ^3/uL (1.6-8.6); Neutrophils % (auto) 87.4 % (37.0-80.0); Red Blood Cells 3.04 10^6/uL (4.5-5.90); White Blood Cell 15.5 10^3/uL (4.4-10.8)
[2022-09-06] MEDS: CEFEPIME 2 GM in SODIUM CHL 0.9% 50 ML IV SCH ×3 (06:50→23:19)
[2022-09-06 08:24] VITALS: BP 113/53
[2022-09-06 09:00] VITALS: BP 113/53
[2022-09-06] MEDS: VANCOMYCIN 1GM/250ML 250 ML IV SCH ×2 (09:59→21:05)
[2022-09-06] MEDS ORDERED: ASPirin-EC 81 mg tab PO SCH (10:00)
[2022-09-06] MEDS: CARVEDILOL 3.125 MG TAB PO SCH (10:00)
[2022-09-06] MEDS: TICAGRELOR 90 MG TAB PO SCH ×2 (10:00→23:18)
[2022-09-06] MEDS ORDERED: PANTOPRAZOLE 40 MG/10 ML VIAL INJ IV SCH (10:00)
[2022-09-06] MEDS: POTASSIUM CHL 10 Meq TABLET PO SCH (10:01)
[2022-09-06] MEDS: ENOXAPARIN SOD 40 MG/0.4 ML SYRINGE SC SCH (10:02)
[2022-09-06] MEDS ORDERED: HYDROcodone-ACET 7.5/325MG TAB PO ONE (12:45)
[2022-09-06 13:00] VITALS: BP 103/59
[2022-09-06] MEDS ORDERED: CILOSTAZOL 100 MG TAB PO ONE (15:45)
[2022-09-06 17:00] VITALS: BP 95/54
[2022-09-06] MEDS ORDERED: LIDOCAINE 1% HCL (LOCAL ANESTH.) INJ 20ML MDV ID ONE (17:30)
[2022-09-06] MEDS: HYDROcodone-ACET 7.5/325MG TAB PO PRN (18:26)
[2022-09-06] MEDS: ATORVASTATIN 20 MG TAB PO SCH (18:26)
[2022-09-06 23:00] VITALS: BP 80/43
[2022-09-06] MEDS: CILOSTAZOL 100 MG TAB PO SCH (23:18)
[2022-09-07] VITALS (63 sets, daily range): BP systolic 68–179; BP diastolic 36–96
[2022-09-07] MEDS ORDERED: MIDODRINE HCL 10 MG TAB PO ONE ×2 (00:30→06:15)
[2022-09-07] MEDS: ALBUMIN 25% 100 ML IV SCH ×2 (03:12→04:08)
[2022-09-07] MEDS: SODIUM CHLORIDE 0.9% 1,000 ML IV SCH ×2 (04:40→20:09)
[2022-09-07] MEDS: CEFEPIME 2 GM in SODIUM CHL 0.9% 50 ML IV SCH ×3 (06:57→21:54)
[2022-09-07] MEDS: GABAPENTIN 300 MG CAP PO SCH ×3 (06:57→21:54)
[2022-09-07] MEDS: InsuLIN REG 1unit/0.01ml Soln (100units/ml) SC SCH ×4 (06:59→22:01)
[2022-09-07] MEDS: ACCU-CHEK COMFORT CURVE STRIP VI SCH ×4 (07:00→21:54)
[2022-09-07] MEDS ORDERED: NOREPINEPHRINE 8 MG/250ML KIT 250 ML IV ONE (07:07)
[2022-09-07 07:15] LABS: Basophils # (auto) 0 10 ^3/uL (0-0.2); Eosinophils # (auto) 0 10 ^3/uL (0-0.8); Hemoglobin 7.6 g/dL (13.5-17.5); Mean Corpuscular Volume 95.1 fL (80.0-100.0); Red Blood Cells 2.31 10^6/uL (4.5-5.90); White Blood Cell 15.7 10^3/uL (4.4-10.8)
[2022-09-07 07:17] LABS: Basophils % (auto) 0.2 % (0.0-2.0); Lymphocytes # (auto) 0.9 10 ^3/uL (0.4-5.4); Lymphocytes % (auto) 5.4 % (10.0-50.0); Mean Corpuscular Hemoglobin 32.8 pg (28.0-32.0); Mean Corpuscular Hgb Conc. 34.5 g/dL (32.0-36.0); Monocytes # (auto) 0.9 10 ^3/uL (0-1.3); Monocytes % (auto) 5.7 % (0.0-12.0); Neutrophils # (auto) 13.9 10 ^3/uL (1.6-8.6); Neutrophils % (auto) 88.7 % (37.0-80.0); Red Cell Distribution Width 15.8 % (11.8-14.3)
[2022-09-07 07:56] LABS: BUN/Creatinine Ratio 21.5 (10.0-20.0); Calcium 7.9 mg/dL (8.5-10.1); Potassium 3.9 mmol/L (3.5-5.1)
[2022-09-07] MEDS: VANCOMYCIN 1GM/250ML 250 ML IV SCH (10:00)
[2022-09-07] MEDS: NOREPINEPHRINE 8 MG/250ML KIT 250 ML IV SCH (10:17)
[2022-09-07] MEDS: PANTOPRAZOLE 40 MG/10 ML VIAL INJ IV SCH (10:37)
[2022-09-07] MEDS: POTASSIUM CHL 10 Meq TABLET PO SCH (10:57)
[2022-09-07] MEDS: TICAGRELOR 90 MG TAB PO SCH ×2 (10:57→21:54)
[2022-09-07] MEDS: ENOXAPARIN SOD 40 MG/0.4 ML SYRINGE SC SCH (10:57)
[2022-09-07] MEDS: CILOSTAZOL 100 MG TAB PO SCH ×2 (14:57→22:02)
[2022-09-07] MEDS: ATORVASTATIN 20 MG TAB PO SCH (18:05)
[2022-09-07] MEDS: HYDROcodone-ACET 7.5/325MG TAB PO PRN (22:09)
[2022-09-08] VITALS (92 sets, daily range): BP systolic 82–137; BP diastolic 34–101
[2022-09-08 04:08] LABS: Eosinophils # (auto) 0 10 ^3/uL (0-0.8); Eosinophils % (auto) 0.1 % (0.0-7.0); Hemoglobin 8.3 g/dL (13.5-17.5); Lymphocytes % (auto) 5.5 % (10.0-50.0); Mean Corpuscular Hemoglobin 32.2 pg (28.0-32.0); Monocytes # (auto) 1.1 10 ^3/uL (0-1.3); Neutrophils % (auto) 87.7 % (37.0-80.0)
[2022-09-08 04:11] LABS: Basophils # (auto) 0 10 ^3/uL (0-0.2); Basophils % (auto) 0.2 % (0.0-2.0); Lymphocytes # (auto) 0.9 10 ^3/uL (0.4-5.4); Mean Corpuscular Hgb Conc. 33.2 g/dL (32.0-36.0); Monocytes % (auto) 6.5 % (0.0-12.0); Red Blood Cells 2.58 10^6/uL (4.5-5.90); Red Cell Distribution Width 15.7 % (11.8-14.3); White Blood Cell 17.1 10^3/uL (4.4-10.8)
[2022-09-08 04:27] LABS: Potassium 3.7 mmol/L (3.5-5.1)
[2022-09-08 04:33] LABS: Albumin 1.8 g/dL (3.4-5.0); BUN/Creatinine Ratio 18.2 (10.0-20.0); Bilirubin, Total 0.6 mg/dL (0.2-1.0); Calcium 8.1 mg/dL (8.5-10.1); Total Protein 6.6 g/dL (6.4-8.2)
[2022-09-08] MEDS: CEFEPIME 2 GM in SODIUM CHL 0.9% 50 ML IV SCH ×3 (05:47→22:17)
[2022-09-08] MEDS: GABAPENTIN 300 MG CAP PO SCH ×3 (05:47→22:17)
[2022-09-08] MEDS: ACCU-CHEK COMFORT CURVE STRIP VI SCH ×4 (07:07→22:17)
[2022-09-08] MEDS: InsuLIN REG 1unit/0.01ml Soln (100units/ml) SC SCH ×4 (07:08→22:22)
[2022-09-08] MEDS: NOREPINEPHRINE 8 MG/250ML KIT 250 ML IV SCH ×2 (07:15→14:38)
[2022-09-08] MEDS: TICAGRELOR 90 MG TAB PO SCH ×2 (09:25→22:17)
[2022-09-08] MEDS: CILOSTAZOL 100 MG TAB PO SCH ×2 (09:26→22:17)
[2022-09-08] MEDS: POTASSIUM CHL 10 Meq TABLET PO SCH (09:26)
[2022-09-08] MEDS: PANTOPRAZOLE 40 MG/10 ML VIAL INJ IV SCH (09:26)
[2022-09-08] MEDS: HYDROcodone-ACET 7.5/325MG TAB PO PRN ×2 (09:26→17:14)
[2022-09-08] MEDS: ENOXAPARIN SOD 40 MG/0.4 ML SYRINGE SC SCH (09:27)
[2022-09-08] MEDS: SODIUM CHLORIDE 0.9% 1,000 ML IV SCH (12:59)
[2022-09-08] MEDS: TAMSULOSIN HYDROCHLORIDE 0.4 MG CAP PO SCH (17:32)
[2022-09-08] MEDS: ATORVASTATIN 20 MG TAB PO SCH (18:52)
[2022-09-09] VITALS (83 sets, daily range): BP systolic 81–155; BP diastolic 31–130
[2022-09-09 04:32] LABS: Basophils # (auto) 0 10 ^3/uL (0-0.2); Basophils % (auto) 0.3 % (0.0-2.0); Eosinophils # (auto) 0 10 ^3/uL (0-0.8); Eosinophils % (auto) 0.2 % (0.0-7.0); Hematocrit 23.2 % (41.0-53.0); Lymphocytes # (auto) 0.9 10 ^3/uL (0.4-5.4); Lymphocytes % (auto) 6.1 % (10.0-50.0); Mean Corpuscular Hemoglobin 32.7 pg (28.0-32.0); Mean Corpuscular Hgb Conc. 34.4 g/dL (32.0-36.0); Mean Corpuscular Volume 94.9 fL (80.0-100.0); Monocytes # (auto) 0.8 10 ^3/uL (0-1.3); Monocytes % (auto) 6.1 % (0.0-12.0); Neutrophils # (auto) 12.1 10 ^3/uL (1.6-8.6); Neutrophils % (auto) 87.3 % (37.0-80.0); Nucleated Red Blood Cells % 0.1 %; Red Blood Cells 2.44 10^6/uL (4.5-5.90); Red Cell Distribution Width 15.8 % (11.8-14.3); White Blood Cell 13.9 10^3/uL (4.4-10.8)
[2022-09-09] MEDS: CEFEPIME 2 GM in SODIUM CHL 0.9% 50 ML IV SCH ×3 (06:18→21:33)
[2022-09-09] MEDS: GABAPENTIN 300 MG CAP PO SCH ×3 (06:18→21:23)
[2022-09-09] MEDS: ACCU-CHEK COMFORT CURVE STRIP VI SCH ×4 (06:53→21:26)
[2022-09-09] MEDS: InsuLIN REG 1unit/0.01ml Soln (100units/ml) SC SCH ×4 (06:56→21:27)
[2022-09-09] MEDS: SODIUM CHLORIDE 0.9% 1,000 ML IV SCH (07:00)
[2022-09-09] MEDS ORDERED: AMIODARONE HCL 150 MG in D5W 5% 100 ML IV ONE (08:15)
[2022-09-09 08:30] LABS: Albumin 1.6 g/dL (3.4-5.0); Calcium 8.1 mg/dL (8.5-10.1)
[2022-09-09] MEDS ORDERED: AMIODARONE 450mg/250ml AE 250 ML IV SCH (08:30)
[2022-09-09 08:33] LABS: Bilirubin, Total 0.6 mg/dL (0.2-1.0); Total Protein 6.6 g/dL (6.4-8.2)
[2022-09-09] MEDS: TICAGRELOR 90 MG TAB PO SCH (08:51)
[2022-09-09] MEDS: ENOXAPARIN SOD 40 MG/0.4 ML SYRINGE SC SCH (08:52)
[2022-09-09] MEDS: CILOSTAZOL 100 MG TAB PO SCH (10:00)
[2022-09-09] MEDS: PANTOPRAZOLE 40 MG/10 ML VIAL INJ IV SCH (10:03)
[2022-09-09] MEDS: POTASSIUM CHL 10 Meq TABLET PO SCH (10:05)
[2022-09-09] MEDS: NOREPINEPHRINE 8 MG/250ML KIT 250 ML IV SCH ×2 (10:36→17:51)
[2022-09-09] MEDS: HYDROcodone-ACET 7.5/325MG TAB PO PRN ×2 (11:54→21:23)
[2022-09-09 12:19] LABS: INR 1.24 (0.9-1.15); Partial Thromboplastin Time 31.9 sec (24.6-33.4)
[2022-09-09] MEDS: AMIODARONE 450mg/250ml AE 250 ML IV SCH ×2 (14:30→17:51)
[2022-09-09] MEDS ORDERED: VANCOMYCIN 500 MG in D5W 5% 100 ML IV ONE (14:30)
[2022-09-09] MEDS ORDERED: LIDOCAINE 1% (LOCAL ANESTH.) PF 5ml SDV ID ONE (17:00)
[2022-09-09] MEDS: TAMSULOSIN HYDROCHLORIDE 0.4 MG CAP PO SCH (17:40)
[2022-09-09] MEDS: ATORVASTATIN 20 MG TAB PO SCH (17:40)
[2022-09-09 18:34] LABS: Urine Bacteria FEW /hpf (None Seen); Urine Blood 3+ /uL (Negative); Urine Budding Yeast FEW /hpf (None Seen); Urine Hyaline Cast FEW /lpf (0 - 2); Urine Mucus FEW (None Seen); Urine Specific Gravity 1.018 (1.001-1.035); Urine WBC 2 /hpf (0 - 3)
[2022-09-09] MEDS: SODIUM CHLOR 0.9% PF (SALINE LOCK) 10ML VIAL/SYR IV SCH (21:34)
[2022-09-10] VITALS (68 sets, daily range): BP systolic 87–171; BP diastolic 40–79
[2022-09-10 04:22] LABS: Basophils # (auto) 0 10 ^3/uL (0-0.2); Hematocrit 22.1 % (41.0-53.0); Hemoglobin 7.7 g/dL (13.5-17.5); Mean Corpuscular Hemoglobin 33.1 pg (28.0-32.0); Monocytes # (auto) 0.8 10 ^3/uL (0-1.3); Red Blood Cells 2.33 10^6/uL (4.5-5.90)
[2022-09-10 04:25] LABS: Basophils % (auto) 0.4 % (0.0-2.0); Eosinophils # (auto) 0.1 10 ^3/uL (0-0.8); Eosinophils % (auto) 0.5 % (0.0-7.0); Lymphocytes # (auto) 0.9 10 ^3/uL (0.4-5.4); Lymphocytes % (auto) 6.8 % (10.0-50.0); Mean Corpuscular Hgb Conc. 34.9 g/dL (32.0-36.0); Mean Corpuscular Volume 94.7 fL (80.0-100.0); Monocytes % (auto) 6.2 % (0.0-12.0); Neutrophils # (auto) 10.9 10 ^3/uL (1.6-8.6); Neutrophils % (auto) 86.1 % (37.0-80.0); Red Cell Distribution Width 15.9 % (11.8-14.3); White Blood Cell 12.7 10^3/uL (4.4-10.8)
[2022-09-10 04:31] LABS: INR 1.34 (0.9-1.15); Partial Thromboplastin Time 32.8 sec (24.6-33.4)
[2022-09-10 04:56] LABS: Albumin 1.5 g/dL (3.4-5.0); Calcium 8.3 mg/dL (8.5-10.1); Potassium 3.5 mmol/L (3.5-5.1)
[2022-09-10 04:58] LABS: BUN/Creatinine Ratio 20.4 (10.0-20.0)
[2022-09-10 05:00] LABS: Bilirubin, Total 0.6 mg/dL (0.2-1.0); Total Protein 6.6 g/dL (6.4-8.2)
[2022-09-10] MEDS: AMIODARONE 450mg/250ml AE 250 ML IV SCH ×2 (05:30→22:15)
[2022-09-10] MEDS: NOREPINEPHRINE 8 MG/250ML KIT 250 ML IV SCH ×2 (05:40→22:18)
[2022-09-10] MEDS: GABAPENTIN 300 MG CAP PO SCH ×3 (05:40→22:00)
[2022-09-10] MEDS: CEFEPIME 2 GM in SODIUM CHL 0.9% 50 ML IV SCH ×3 (05:50→22:18)
[2022-09-10] MEDS: ACCU-CHEK COMFORT CURVE STRIP VI SCH ×4 (06:44→22:17)
[2022-09-10] MEDS: InsuLIN REG 1unit/0.01ml Soln (100units/ml) SC SCH ×4 (06:45→22:28)
[2022-09-10] MEDS: POVIDONE IODINE 10 % TOPICAL OINT 30GM TOP ONE ×2 (06:54→10:05)
[2022-09-10] MEDS ORDERED: fentaNYL CITRATE 5 ML ONE (07:25)
[2022-09-10] MEDS ORDERED: MIDAZOLAM HCL 2MG/2ML 2ml VIAL (1mg/ml) ONE (07:25)
[2022-09-10] MEDS ORDERED: MORPHINE SULF PF 5 MG/10 ML VIAL ONE (07:25)
[2022-09-10] MEDS ORDERED: KETAMINE HCL 10 ML ONE (07:25)
[2022-09-10] MEDS ORDERED: GLYCOPYRROLATE 0.2 MG/ML 1ML VIAL ONE (07:28)
[2022-09-10] MEDS ORDERED: ETOMIDATE (2MG/ML) 20ML VIAL IV ONE (07:28)
[2022-09-10] MEDS ORDERED: SODIUM CHLORIDE LOCK 20 ML ONE (07:28)
[2022-09-10] MEDS ORDERED: LIDOCAINE 2% (LOCAL ANESTH.) PF 5ml SDV ONE (07:28)
[2022-09-10] MEDS ORDERED: DexAMETHasone SOD PHOS 10MG/1ML VIAL INJ ONE (07:28)
[2022-09-10] MEDS ORDERED: ONDANSETRON HCL 4 MG/2 ML VIAL ONE (07:28)
[2022-09-10] MEDS ORDERED: NEOSTIGMINE 1 MG/ML INJ (10mg/10ML VIAL) ONE (07:28)
[2022-09-10] MEDS ORDERED: ROCURONIUM 10MG/ML 10ML VIAL IV ONE (07:29)
[2022-09-10] MEDS ORDERED: LIDOCAINE 2% JELLY 11ml (GLYDO) ONE (07:32)
[2022-09-10] MEDS: ENOXAPARIN SOD 40 MG/0.4 ML SYRINGE SC SCH (10:00)
[2022-09-10] MEDS: SODIUM CHLOR 0.9% PF (SALINE LOCK) 10ML VIAL/SYR IV SCH ×2 (10:00→22:22)
[2022-09-10] MEDS: POTASSIUM CHL 10 Meq TABLET PO SCH (10:00)
[2022-09-10] MEDS: PANTOPRAZOLE 40 MG/10 ML VIAL INJ IV SCH (10:00)
[2022-09-10 11:04] LABS: Basophils # (auto) 0.1 10 ^3/uL (0-0.2); Mean Corpuscular Volume 97.2 fL (80.0-100.0); Monocytes # (auto) 0.4 10 ^3/uL (0-1.3); White Blood Cell 17.6 10^3/uL (4.4-10.8)
[2022-09-10 11:06] LABS: Basophils % (auto) 0.3 % (0.0-2.0); Eosinophils # (auto) 0.1 10 ^3/uL (0-0.8); Eosinophils % (auto) 0.3 % (0.0-7.0); Hematocrit 24.3 % (41.0-53.0); Hemoglobin 8.2 g/dL (13.5-17.5); Lymphocytes # (auto) 0.7 10 ^3/uL (0.4-5.4); Mean Corpuscular Hgb Conc. 33.9 g/dL (32.0-36.0); Monocytes % (auto) 2.1 % (0.0-12.0); Neutrophils # (auto) 16.4 10 ^3/uL (1.6-8.6); Neutrophils % (auto) 93.3 % (37.0-80.0); Nucleated Red Blood Cells % 0.1 %; Red Cell Distribution Width 16.2 % (11.8-14.3)
[2022-09-10] MEDS: VANCOMYCIN 1GM/250ML 250 ML IV SCH (13:00)
[2022-09-10] MEDS ORDERED: SODIUM CHLORIDE 0.9% 500 ML IV ONE (13:15)
[2022-09-10] MEDS: TAMSULOSIN HYDROCHLORIDE 0.4 MG CAP PO SCH (17:58)
[2022-09-10] MEDS: ATORVASTATIN 20 MG TAB PO SCH (17:58)
[2022-09-11] VITALS (102 sets, daily range): BP systolic 88–288; BP diastolic 40–281
[2022-09-11 04:37] LABS: Basophils # (auto) 0 10 ^3/uL (0-0.2); Basophils % (auto) 0.1 % (0.0-2.0); Eosinophils # (auto) 0 10 ^3/uL (0-0.8); Mean Corpuscular Hgb Conc. 34.7 g/dL (32.0-36.0); Monocytes # (auto) 0.3 10 ^3/uL (0-1.3)
[2022-09-11 04:40] LABS: Hematocrit 17.9 % (41.0-53.0); Lymphocytes # (auto) 0.8 10 ^3/uL (0.4-5.4); Lymphocytes % (auto) 6.6 % (10.0-50.0); Mean Corpuscular Hemoglobin 33.1 pg (28.0-32.0); Mean Corpuscular Volume 95.5 fL (80.0-100.0); Monocytes % (auto) 2.5 % (0.0-12.0); Neutrophils # (auto) 10.4 10 ^3/uL (1.6-8.6); Neutrophils % (auto) 90.8 % (37.0-80.0); Nucleated Red Blood Cells % 0.1 %; Red Blood Cells 1.88 10^6/uL (4.5-5.90); Red Cell Distribution Width 16.1 % (11.8-14.3); White Blood Cell 11.5 10^3/uL (4.4-10.8)
[2022-09-11 04:52] LABS: Hemoglobin 6.2 g/dL (13.5-17.5)
[2022-09-11 04:53] LABS: Albumin 1.5 g/dL (3.4-5.0); Calcium 7.8 mg/dL (8.5-10.1); Potassium 4.3 mmol/L (3.5-5.1)
[2022-09-11 04:58] LABS: BUN/Creatinine Ratio 21.7 (10.0-20.0); Bilirubin, Total 0.4 mg/dL (0.2-1.0); Total Protein 6.4 g/dL (6.4-8.2)
[2022-09-11] MEDS: GABAPENTIN 300 MG CAP PO SCH ×3 (05:39→21:58)
[2022-09-11] MEDS: CEFEPIME 2 GM in SODIUM CHL 0.9% 50 ML IV SCH ×3 (05:46→21:50)
[2022-09-11] MEDS: ACCU-CHEK COMFORT CURVE STRIP VI SCH ×4 (06:25→22:00)
[2022-09-11] MEDS: InsuLIN REG 1unit/0.01ml Soln (100units/ml) SC SCH ×4 (06:28→22:13)
[2022-09-11] MEDS: PANTOPRAZOLE 40 MG/10 ML VIAL INJ IV SCH (09:56)
[2022-09-11] MEDS: SODIUM CHLOR 0.9% PF (SALINE LOCK) 10ML VIAL/SYR IV SCH ×2 (09:57→21:59)
[2022-09-11] MEDS: POTASSIUM CHL 10 Meq TABLET PO SCH (09:57)
[2022-09-11] MEDS: ENOXAPARIN SOD 40 MG/0.4 ML SYRINGE SC SCH (09:57)
[2022-09-11] MEDS: AMIODARONE 450mg/250ml AE 250 ML IV SCH ×2 (11:30→13:46)
[2022-09-11] MEDS: HYDROcodone-ACET 7.5/325MG TAB PO PRN (12:05)
[2022-09-11] MEDS: VANCOMYCIN 1GM/250ML 250 ML IV SCH (13:51)
[2022-09-11] MEDS: ATORVASTATIN 20 MG TAB PO SCH (18:19)
[2022-09-11] MEDS: TAMSULOSIN HYDROCHLORIDE 0.4 MG CAP PO SCH (18:19)
[2022-09-12] VITALS (94 sets, daily range): BP systolic -49–285; BP diastolic 27–280
[2022-09-12] MEDS: HYDROcodone-ACET 7.5/325MG TAB PO PRN ×2 (00:34→20:23)
[2022-09-12 04:39] LABS: Basophils # (auto) 0 10 ^3/uL (0-0.2); Basophils % (auto) 0.1 % (0.0-2.0); Eosinophils # (auto) 0 10 ^3/uL (0-0.8); Hematocrit 21.3 % (41.0-53.0); Hemoglobin 7.4 g/dL (13.5-17.5); Lymphocytes # (auto) 1.4 10 ^3/uL (0.4-5.4); Lymphocytes % (auto) 9.1 % (10.0-50.0); Mean Corpuscular Hemoglobin 32.4 pg (28.0-32.0); Mean Corpuscular Hgb Conc. 34.5 g/dL (32.0-36.0); Mean Corpuscular Volume 93.9 fL (80.0-100.0); Monocytes # (auto) 0.6 10 ^3/uL (0-1.3); Monocytes % (auto) 4.1 % (0.0-12.0); Neutrophils # (auto) 12.9 10 ^3/uL (1.6-8.6); Neutrophils % (auto) 86.7 % (37.0-80.0); Red Blood Cells 2.27 10^6/uL (4.5-5.90); Red Cell Distribution Width 16.2 % (11.8-14.3); White Blood Cell 14.9 10^3/uL (4.4-10.8)
[2022-09-12 04:59] LABS: BUN/Creatinine Ratio 30.2 (10.0-20.0); Potassium 4.1 mmol/L (3.5-5.1)
[2022-09-12] MEDS: CEFEPIME 2 GM in SODIUM CHL 0.9% 50 ML IV SCH ×3 (06:41→22:22)
[2022-09-12] MEDS: GABAPENTIN 300 MG CAP PO SCH ×3 (06:41→22:22)
[2022-09-12] MEDS: ACCU-CHEK COMFORT CURVE STRIP VI SCH ×4 (06:42→22:22)
[2022-09-12] MEDS: InsuLIN REG 1unit/0.01ml Soln (100units/ml) SC SCH ×4 (06:47→22:29)
[2022-09-12] MEDS: NOREPINEPHRINE 8 MG/250ML KIT 250 ML IV SCH (06:54)
[2022-09-12] MEDS: PANTOPRAZOLE 40 MG/10 ML VIAL INJ IV SCH (08:27)
[2022-09-12] MEDS: POTASSIUM CHL 10 Meq TABLET PO SCH (08:28)
[2022-09-12] MEDS: ENOXAPARIN SOD 40 MG/0.4 ML SYRINGE SC SCH (08:28)
[2022-09-12] MEDS: AMIODARONE HCL 200 MG TAB PO SCH (08:28)
[2022-09-12] MEDS: SODIUM CHLOR 0.9% PF (SALINE LOCK) 10ML VIAL/SYR IV SCH ×2 (08:28→22:22)
[2022-09-12] MEDS: VANCOMYCIN 1GM/250ML 250 ML IV SCH (13:03)
[2022-09-12] MEDS: TAMSULOSIN HYDROCHLORIDE 0.4 MG CAP PO SCH (17:12)
[2022-09-12] MEDS: ATORVASTATIN 20 MG TAB PO SCH (17:12)
[2022-09-13] VITALS (65 sets, daily range): BP systolic 101–164; BP diastolic 14–69
[2022-09-13 03:55] LABS: Basophils # (auto) 0 10 ^3/uL (0-0.2); Eosinophils # (auto) 0 10 ^3/uL (0-0.8); Eosinophils % (auto) 0.6 % (0.0-7.0); Lymphocytes # (auto) 1.6 10 ^3/uL (0.4-5.4)
[2022-09-13 03:58] LABS: Basophils % (auto) 0.3 % (0.0-2.0); Lymphocytes % (auto) 22.1 % (10.0-50.0); Mean Corpuscular Hgb Conc. 34.9 g/dL (32.0-36.0); Mean Corpuscular Volume 94.5 fL (80.0-100.0); Monocytes # (auto) 0.6 10 ^3/uL (0-1.3); Monocytes % (auto) 7.8 % (0.0-12.0); Neutrophils # (auto) 5.1 10 ^3/uL (1.6-8.6); Neutrophils % (auto) 69.2 % (37.0-80.0); Nucleated Red Blood Cells % 0.3 %; Red Blood Cells 2.11 10^6/uL (4.5-5.90); Red Cell Distribution Width 16.8 % (11.8-14.3); White Blood Cell 7.4 10^3/uL (4.4-10.8)
[2022-09-13 04:05] LABS: Albumin 1.5 g/dL (3.4-5.0); Calcium 7.6 mg/dL (8.5-10.1); Potassium 3.7 mmol/L (3.5-5.1)
[2022-09-13 04:08] LABS: BUN/Creatinine Ratio 25.6 (10.0-20.0); Bilirubin, Total 0.2 mg/dL (0.2-1.0); Total Protein 6.1 g/dL (6.4-8.2)
[2022-09-13] MEDS: CEFEPIME 2 GM in SODIUM CHL 0.9% 50 ML IV SCH ×3 (06:12→22:46)
[2022-09-13] MEDS: GABAPENTIN 300 MG CAP PO SCH ×3 (06:12→21:51)
[2022-09-13] MEDS: InsuLIN REG 1unit/0.01ml Soln (100units/ml) SC SCH ×4 (06:25→21:57)
[2022-09-13] MEDS: ACCU-CHEK COMFORT CURVE STRIP VI SCH ×4 (06:26→21:51)
[2022-09-13] MEDS: NOREPINEPHRINE 8 MG/250ML KIT 250 ML IV SCH (07:15)
[2022-09-13] MEDS: ENOXAPARIN SOD 40 MG/0.4 ML SYRINGE SC SCH (10:00)
[2022-09-13] MEDS: POTASSIUM CHL 10 Meq TABLET PO SCH (10:49)
[2022-09-13] MEDS: AMIODARONE HCL 200 MG TAB PO SCH (10:49)
[2022-09-13] MEDS: SODIUM CHLOR 0.9% PF (SALINE LOCK) 10ML VIAL/SYR IV SCH ×2 (10:50→21:51)
[2022-09-13] MEDS: BACITRACIN TOP OINT 1 UD PKG TOP SCH (10:50)
[2022-09-13] MEDS: PANTOPRAZOLE 40 MG/10 ML VIAL INJ IV SCH ×2 (10:52→21:51)
[2022-09-13] MEDS: VANCOMYCIN 1GM/250ML 250 ML IV SCH (14:31)
[2022-09-13] MEDS: HYDROcodone-ACET 7.5/325MG TAB PO PRN (14:40)
[2022-09-13] MEDS: TAMSULOSIN HYDROCHLORIDE 0.4 MG CAP PO SCH (18:34)
[2022-09-13] MEDS: ATORVASTATIN 20 MG TAB PO SCH (18:34)
[2022-09-13] MEDS ORDERED: PANTOPRAZOLE 40 MG/10 ML VIAL INJ IV SCH (22:00)
[2022-09-14] VITALS (9 sets, daily range): BP systolic 105–130; BP diastolic 46–69
[2022-09-14] MEDS: GABAPENTIN 300 MG CAP PO SCH ×3 (05:32→21:27)
[2022-09-14] MEDS: CEFEPIME 2 GM in SODIUM CHL 0.9% 50 ML IV SCH (05:32)
[2022-09-14 06:24] LABS: Albumin 1.7 g/dL (3.4-5.0); Calcium 7.6 mg/dL (8.5-10.1); Potassium 4.5 mmol/L (3.5-5.1)
[2022-09-14] MEDS: ACCU-CHEK COMFORT CURVE STRIP VI SCH ×4 (06:24→21:29)
[2022-09-14] MEDS: InsuLIN REG 1unit/0.01ml Soln (100units/ml) SC SCH ×4 (06:27→22:42)
[2022-09-14 06:28] LABS: BUN/Creatinine Ratio 22.8 (10.0-20.0); Bilirubin, Total 0.7 mg/dL (0.2-1.0); Total Protein 6.3 g/dL (6.4-8.2)
[2022-09-14 06:41] LABS: Basophils # (auto) 0 10 ^3/uL (0-0.2); Basophils % (auto) 0.5 % (0.0-2.0); Eosinophils # (auto) 0.1 10 ^3/uL (0-0.8); Eosinophils % (auto) 1.7 % (0.0-7.0); Hemoglobin 10.2 g/dL (13.5-17.5); Lymphocytes # (auto) 1.9 10 ^3/uL (0.4-5.4); Lymphocytes % (auto) 22.4 % (10.0-50.0); Mean Corpuscular Hemoglobin 32.5 pg (28.0-32.0); Mean Corpuscular Hgb Conc. 34.1 g/dL (32.0-36.0); Mean Corpuscular Volume 95.2 fL (80.0-100.0); Monocytes # (auto) 0.6 10 ^3/uL (0-1.3); Monocytes % (auto) 6.7 % (0.0-12.0); Neutrophils # (auto) 5.7 10 ^3/uL (1.6-8.6); Neutrophils % (auto) 68.7 % (37.0-80.0); Nucleated Red Blood Cells % 0.7 %; Red Blood Cells 3.15 10^6/uL (4.5-5.90); Red Cell Distribution Width 16.3 % (11.8-14.3); White Blood Cell 8.4 10^3/uL (4.4-10.8)
[2022-09-14] MEDS: PANTOPRAZOLE 40 MG/10 ML VIAL INJ IV SCH ×2 (10:38→21:29)
[2022-09-14] MEDS: AMIODARONE HCL 200 MG TAB PO SCH (10:39)
[2022-09-14] MEDS: POTASSIUM CHL 10 Meq TABLET PO SCH (10:39)
[2022-09-14] MEDS: BACITRACIN TOP OINT 1 UD PKG TOP SCH (10:39)
[2022-09-14] MEDS: SODIUM CHLOR 0.9% PF (SALINE LOCK) 10ML VIAL/SYR IV SCH ×2 (10:39→21:29)
[2022-09-14] MEDS: VANCOMYCIN 1GM/250ML 250 ML IV SCH (11:40)
[2022-09-14] MEDS: CEFEPIME 2GM/50ML NS 50 ML IV SCH ×2 (13:12→21:29)
[2022-09-14] MEDS ORDERED: ROCURONIUM 10MG/ML 10ML VIAL IV ONE (14:26)
[2022-09-14] MEDS ORDERED: ETOMIDATE (2MG/ML) 20ML VIAL IV ONE (14:26)
[2022-09-14] MEDS: HYDROcodone-ACET 7.5/325MG TAB PO PRN (15:24)
[2022-09-14] MEDS: ATORVASTATIN 20 MG TAB PO SCH (18:30)
[2022-09-14] MEDS: TAMSULOSIN HYDROCHLORIDE 0.4 MG CAP PO SCH (18:30)
[2022-09-15 05:00] VITALS: BP 116/65
[2022-09-15] MEDS: GABAPENTIN 300 MG CAP PO SCH ×3 (05:13→21:35)
[2022-09-15] MEDS: CEFEPIME 2GM/50ML NS 50 ML IV SCH ×5 (05:14→22:26)
[2022-09-15 05:36] LABS: Basophils # (auto) 0 10 ^3/uL (0-0.2); Basophils % (auto) 0.5 % (0.0-2.0); Eosinophils # (auto) 0.1 10 ^3/uL (0-0.8); Eosinophils % (auto) 1.6 % (0.0-7.0); Hematocrit 29.8 % (41.0-53.0); Hemoglobin 10.3 g/dL (13.5-17.5); Lymphocytes # (auto) 1.5 10 ^3/uL (0.4-5.4); Lymphocytes % (auto) 24.7 % (10.0-50.0); Mean Corpuscular Hemoglobin 32.3 pg (28.0-32.0); Mean Corpuscular Hgb Conc. 34.4 g/dL (32.0-36.0); Mean Corpuscular Volume 93.8 fL (80.0-100.0); Monocytes # (auto) 0.4 10 ^3/uL (0-1.3); Monocytes % (auto) 6.1 % (0.0-12.0); Neutrophils # (auto) 4.1 10 ^3/uL (1.6-8.6); Neutrophils % (auto) 67.1 % (37.0-80.0); Nucleated Red Blood Cells % 0.2 %; Red Blood Cells 3.18 10^6/uL (4.5-5.90); Red Cell Distribution Width 16.2 % (11.8-14.3); White Blood Cell 6.1 10^3/uL (4.4-10.8)
[2022-09-15 05:42] LABS: Calcium 7.7 mg/dL (8.5-10.1); Potassium 4.5 mmol/L (3.5-5.1)
[2022-09-15 05:45] LABS: BUN/Creatinine Ratio 23.4 (10.0-20.0)
[2022-09-15] MEDS: ACCU-CHEK COMFORT CURVE STRIP VI SCH ×4 (06:25→21:35)
[2022-09-15] MEDS: InsuLIN REG 1unit/0.01ml Soln (100units/ml) SC SCH ×4 (06:43→22:27)
[2022-09-15] MEDS: POTASSIUM CHL 10 Meq TABLET PO SCH (08:49)
[2022-09-15] MEDS: AMIODARONE HCL 200 MG TAB PO SCH (08:50)
[2022-09-15] MEDS: PANTOPRAZOLE 40 MG/10 ML VIAL INJ IV SCH ×2 (08:50→21:35)
[2022-09-15] MEDS: HYDROcodone-ACET 7.5/325MG TAB PO PRN ×2 (08:50→22:51)
[2022-09-15] MEDS: BACITRACIN TOP OINT 1 UD PKG TOP SCH (08:51)
[2022-09-15 09:00] VITALS: BP 126/65
[2022-09-15] MEDS: SODIUM CHLOR 0.9% PF (SALINE LOCK) 10ML VIAL/SYR IV SCH ×2 (10:00→21:35)
[2022-09-15 13:00] VITALS: BP 132/80
[2022-09-15] MEDS: VANCOMYCIN 1GM/250ML 250 ML IV SCH (14:37)
[2022-09-15] MEDS: TAMSULOSIN HYDROCHLORIDE 0.4 MG CAP PO SCH (18:41)
[2022-09-15] MEDS: ATORVASTATIN 20 MG TAB PO SCH (18:42)
[2022-09-15 22:00] VITALS: BP 100/53
[2022-09-16 05:00] VITALS: BP 119/82
[2022-09-16] MEDS: GABAPENTIN 300 MG CAP PO SCH ×3 (05:35→22:03)
[2022-09-16] MEDS: CEFEPIME 2GM/50ML NS 50 ML IV SCH ×3 (05:36→22:03)
[2022-09-16] MEDS: ACCU-CHEK COMFORT CURVE STRIP VI SCH ×4 (05:58→22:03)
[2022-09-16] MEDS: InsuLIN REG 1unit/0.01ml Soln (100units/ml) SC SCH ×4 (06:02→22:04)
[2022-09-16 07:42] LABS: Potassium 5.1 mmol/L (3.5-5.1)
[2022-09-16 09:00] VITALS: BP 117/65
[2022-09-16] MEDS: SODIUM CHLOR 0.9% PF (SALINE LOCK) 10ML VIAL/SYR IV SCH ×2 (10:39→22:03)
[2022-09-16] MEDS: BACITRACIN TOP OINT 1 UD PKG TOP SCH (10:40)
[2022-09-16] MEDS: POTASSIUM CHL 10 Meq TABLET PO SCH (10:40)
[2022-09-16] MEDS: PANTOPRAZOLE 40 MG/10 ML VIAL INJ IV SCH ×2 (10:40→22:02)
[2022-09-16] MEDS: AMIODARONE HCL 200 MG TAB PO SCH (10:43)
[2022-09-16] MEDS: VANCOMYCIN 1GM/250ML 250 ML IV SCH (16:26)
[2022-09-16 17:00] VITALS: BP 115/68
[2022-09-16] MEDS: TAMSULOSIN HYDROCHLORIDE 0.4 MG CAP PO SCH (19:18)
[2022-09-16] MEDS: ATORVASTATIN 20 MG TAB PO SCH (19:18)
[2022-09-16] MEDS: HYDROcodone-ACET 7.5/325MG TAB PO PRN (22:03)
[2022-09-16 22:07] VITALS: BP 106/52
[2022-09-17 05:00] VITALS: BP 122/74
[2022-09-17] MEDS: CEFEPIME 2GM/50ML NS 50 ML IV SCH ×3 (06:04→22:53)
[2022-09-17] MEDS: GABAPENTIN 300 MG CAP PO SCH ×3 (06:04→22:54)
[2022-09-17] MEDS: InsuLIN REG 1unit/0.01ml Soln (100units/ml) SC SCH ×4 (06:18→22:55)
[2022-09-17] MEDS: ACCU-CHEK COMFORT CURVE STRIP VI SCH ×4 (06:19→22:00)
[2022-09-17 08:13] LABS: Potassium 4.6 mmol/L (3.5-5.1)
[2022-09-17 08:17] LABS: BUN/Creatinine Ratio 20.2 (10.0-20.0)
[2022-09-17 09:00] VITALS: BP 108/55
[2022-09-17] MEDS: PANTOPRAZOLE 40 MG/10 ML VIAL INJ IV SCH ×2 (10:17→22:53)
[2022-09-17] MEDS: SODIUM CHLOR 0.9% PF (SALINE LOCK) 10ML VIAL/SYR IV SCH ×2 (10:17→22:00)
[2022-09-17] MEDS: BACITRACIN TOP OINT 1 UD PKG TOP SCH (10:18)
[2022-09-17] MEDS: AMIODARONE HCL 200 MG TAB PO SCH (10:18)
[2022-09-17] MEDS: POTASSIUM CHL 10 Meq TABLET PO SCH (10:18)
[2022-09-17] MEDS: VANCOMYCIN 1GM/250ML 250 ML IV SCH (12:42)
[2022-09-17 13:00] VITALS: BP 131/75
[2022-09-17] MEDS ORDERED: CITA-77 PO (15:49)
[2022-09-17] MEDS ORDERED: CLOP75TA70 PO (15:49)
[2022-09-17 17:00] VITALS: BP 103/65
[2022-09-17] MEDS: HYDROcodone-ACET 7.5/325MG TAB PO PRN (17:41)
[2022-09-17] MEDS: ATORVASTATIN 20 MG TAB PO SCH (17:41)
[2022-09-17] MEDS: TAMSULOSIN HYDROCHLORIDE 0.4 MG CAP PO SCH (17:41)
[2022-09-17 22:00] VITALS: BP 93/41
[2022-09-18 05:00] VITALS: BP 97/61
[2022-09-18] MEDS: CEFEPIME 2GM/50ML NS 50 ML IV SCH ×3 (05:58→21:33)
[2022-09-18] MEDS: GABAPENTIN 300 MG CAP PO SCH ×3 (05:58→21:32)
[2022-09-18] MEDS: ACCU-CHEK COMFORT CURVE STRIP VI SCH ×4 (07:00→21:45)
[2022-09-18] MEDS: InsuLIN REG 1unit/0.01ml Soln (100units/ml) SC SCH ×4 (07:01→21:47)
[2022-09-18 09:00] VITALS: BP 100/58
[2022-09-18] MEDS: PANTOPRAZOLE 40 MG/10 ML VIAL INJ IV SCH ×2 (09:01→21:32)
[2022-09-18] MEDS: AMIODARONE HCL 200 MG TAB PO SCH (09:02)
[2022-09-18] MEDS: BACITRACIN TOP OINT 1 UD PKG TOP SCH (09:02)
[2022-09-18] MEDS: POTASSIUM CHL 10 Meq TABLET PO SCH (09:02)
[2022-09-18] MEDS: SODIUM CHLOR 0.9% PF (SALINE LOCK) 10ML VIAL/SYR IV SCH ×2 (09:07→21:33)
[2022-09-18] MEDS: VANCOMYCIN 1GM/250ML 250 ML IV SCH (12:47)
[2022-09-18 13:00] VITALS: BP 102/60
[2022-09-18 17:00] VITALS: BP 121/58
[2022-09-18] MEDS: TAMSULOSIN HYDROCHLORIDE 0.4 MG CAP PO SCH (18:24)
[2022-09-18] MEDS: ATORVASTATIN 20 MG TAB PO SCH (18:25)
[2022-09-18 22:00] VITALS: BP 107/65
[2022-09-19] MEDS: HYDROcodone-ACET 7.5/325MG TAB PO PRN ×3 (02:09→23:32)
[2022-09-19 05:00] VITALS: BP 101/64
[2022-09-19] MEDS: GABAPENTIN 300 MG CAP PO SCH ×3 (06:15→22:25)
[2022-09-19] MEDS: CEFEPIME 2GM/50ML NS 50 ML IV SCH ×3 (06:16→22:25)
[2022-09-19] MEDS: ACCU-CHEK COMFORT CURVE STRIP VI SCH ×4 (06:28→22:25)
[2022-09-19] MEDS: InsuLIN REG 1unit/0.01ml Soln (100units/ml) SC SCH ×4 (06:29→22:52)
[2022-09-19 09:01] VITALS: BP 121/67
[2022-09-19] MEDS: AMIODARONE HCL 200 MG TAB PO SCH (09:09)
[2022-09-19] MEDS: BACITRACIN TOP OINT 1 UD PKG TOP SCH (09:10)
[2022-09-19] MEDS: POTASSIUM CHL 10 Meq TABLET PO SCH (09:10)
[2022-09-19] MEDS: SODIUM CHLOR 0.9% PF (SALINE LOCK) 10ML VIAL/SYR IV SCH ×2 (09:11→22:00)
[2022-09-19] MEDS: PANTOPRAZOLE 40 MG/10 ML VIAL INJ IV SCH ×2 (09:11→22:25)
[2022-09-19 13:00] VITALS: BP_SYST 127; BP_SYST 130; BP_DIAS 80; BP_DIAS 88
[2022-09-19 17:07] VITALS: BP 128/84
[2022-09-19] MEDS: TAMSULOSIN HYDROCHLORIDE 0.4 MG CAP PO SCH (17:34)
[2022-09-19] MEDS: ATORVASTATIN 20 MG TAB PO SCH (17:34)
[2022-09-19 22:00] VITALS: BP 114/68
[2022-09-20 05:00] VITALS: BP 103/63
[2022-09-20 06:11] LABS: Basophils # (auto) 0.1 10 ^3/uL (0-0.2); Basophils % (auto) 1.8 % (0.0-2.0); Eosinophils # (auto) 0.2 10 ^3/uL (0-0.8); Eosinophils % (auto) 3.2 % (0.0-7.0); Hematocrit 28.4 % (41.0-53.0); Hemoglobin 9.7 g/dL (13.5-17.5); Lymphocytes # (auto) 1.3 10 ^3/uL (0.4-5.4); Lymphocytes % (auto) 27.1 % (10.0-50.0); Mean Corpuscular Hemoglobin 32.6 pg (28.0-32.0); Mean Corpuscular Hgb Conc. 34.1 g/dL (32.0-36.0); Mean Corpuscular Volume 95.8 fL (80.0-100.0); Monocytes # (auto) 0.6 10 ^3/uL (0-1.3); Monocytes % (auto) 12.3 % (0.0-12.0); Neutrophils # (auto) 2.7 10 ^3/uL (1.6-8.6); Neutrophils % (auto) 55.6 % (37.0-80.0); Nucleated Red Blood Cells % 0.1 %; Red Blood Cells 2.97 10^6/uL (4.5-5.90); Red Cell Distribution Width 16.8 % (11.8-14.3); White Blood Cell 4.8 10^3/uL (4.4-10.8)
[2022-09-20 06:23] LABS: BUN/Creatinine Ratio 22.1 (10.0-20.0); Calcium 7.8 mg/dL (8.5-10.1); Magnesium 1.7 mg/dL (1.6-2.6); Phosphorus 2.7 mg/dL (2.5-4.90); Potassium 4.8 mmol/L (3.5-5.1)
[2022-09-20] MEDS: ACCU-CHEK COMFORT CURVE STRIP VI SCH ×4 (06:33→21:56)
[2022-09-20] MEDS: GABAPENTIN 300 MG CAP PO SCH ×3 (06:33→21:54)
[2022-09-20] MEDS: CEFEPIME 2GM/50ML NS 50 ML IV SCH ×3 (06:33→21:54)
[2022-09-20] MEDS: InsuLIN REG 1unit/0.01ml Soln (100units/ml) SC SCH ×4 (06:34→21:56)
[2022-09-20 08:00] VITALS: BP 111/69
[2022-09-20] MEDS ORDERED: LEVOTHYROXINE SODIUM 88 MCG TAB PO ONE (09:15)
[2022-09-20] MEDS ORDERED: MAGNESIUM OXIDE 400 MG TAB PO ONE ×2 (09:15→14:30)
[2022-09-20] MEDS ORDERED: SODIUM BICARBONATE 50ML VIAL 75 ML in D5W 5% 1,000 ML IV ONE (09:15)
[2022-09-20] MEDS: AMIODARONE HCL 200 MG TAB PO SCH (09:23)
[2022-09-20] MEDS: PANTOPRAZOLE 40 MG/10 ML VIAL INJ IV SCH ×2 (09:23→21:54)
[2022-09-20] MEDS: POTASSIUM CHL 10 Meq TABLET PO SCH (09:25)
[2022-09-20] MEDS: BACITRACIN TOP OINT 1 UD PKG TOP SCH (09:25)
[2022-09-20] MEDS: SODIUM CHLOR 0.9% PF (SALINE LOCK) 10ML VIAL/SYR IV SCH ×2 (09:26→21:54)
[2022-09-20 12:00] VITALS: BP 101/55
[2022-09-20 16:00] VITALS: BP 117/63
[2022-09-20] MEDS: TAMSULOSIN HYDROCHLORIDE 0.4 MG CAP PO SCH (18:04)
[2022-09-20] MEDS: ATORVASTATIN 20 MG TAB PO SCH (18:04)
[2022-09-20] MEDS: DOCUSATE SOD 100 MG CAP PO PRN (19:02)
[2022-09-20] MEDS: HYDROcodone-ACET 7.5/325MG TAB PO PRN (21:56)
[2022-09-20 22:00] VITALS: BP 113/68
[2022-09-21 05:00] VITALS: BP 121/55
[2022-09-21 05:34] LABS: Basophils # (auto) 0.1 10 ^3/uL (0-0.2); Basophils % (auto) 1.1 % (0.0-2.0); Eosinophils # (auto) 0.1 10 ^3/uL (0-0.8); Eosinophils % (auto) 2.2 % (0.0-7.0); Hematocrit 29.5 % (41.0-53.0); Hemoglobin 10.2 g/dL (13.5-17.5); Lymphocytes # (auto) 1.4 10 ^3/uL (0.4-5.4); Mean Corpuscular Hemoglobin 33.2 pg (28.0-32.0); Mean Corpuscular Hgb Conc. 34.5 g/dL (32.0-36.0); Mean Corpuscular Volume 96.2 fL (80.0-100.0); Monocytes # (auto) 0.5 10 ^3/uL (0-1.3); Monocytes % (auto) 8.8 % (0.0-12.0); Neutrophils # (auto) 3.8 10 ^3/uL (1.6-8.6); Neutrophils % (auto) 63.9 % (37.0-80.0); Red Blood Cells 3.06 10^6/uL (4.5-5.90); Red Cell Distribution Width 16.2 % (11.8-14.3)
[2022-09-21 05:52] LABS: Potassium 4.9 mmol/L (3.5-5.1)
[2022-09-21 06:09] LABS: Calcium 8.4 mg/dL (8.5-10.1)
[2022-09-21 06:14] LABS: Nucleated Red Blood Cells % 16.2 %
[2022-09-21] MEDS: GABAPENTIN 300 MG CAP PO SCH ×3 (06:15→21:16)
[2022-09-21] MEDS: LEVOTHYROXINE SODIUM 88 MCG TAB PO SCH (06:15)
[2022-09-21] MEDS: InsuLIN REG 1unit/0.01ml Soln (100units/ml) SC SCH ×4 (06:16→21:37)
[2022-09-21] MEDS: ACCU-CHEK COMFORT CURVE STRIP VI SCH ×4 (06:18→21:17)
[2022-09-21 09:00] VITALS: BP 133/64
[2022-09-21] MEDS: PANTOPRAZOLE 40 MG/10 ML VIAL INJ IV SCH ×2 (09:50→21:16)
[2022-09-21] MEDS: AMIODARONE HCL 200 MG TAB PO SCH (09:50)
[2022-09-21] MEDS: CEFEPIME 2GM/50ML NS 50 ML IV SCH ×2 (09:50→21:17)
[2022-09-21] MEDS: DOCUSATE SOD 100 MG CAP PO PRN (09:50)
[2022-09-21] MEDS: BACITRACIN TOP OINT 1 UD PKG TOP SCH (09:50)
[2022-09-21] MEDS: POTASSIUM CHL 10 Meq TABLET PO SCH (09:51)
[2022-09-21] MEDS: SODIUM CHLOR 0.9% PF (SALINE LOCK) 10ML VIAL/SYR IV SCH ×2 (10:15→21:16)
[2022-09-21 13:00] VITALS: BP 145/80
[2022-09-21 17:00] VITALS: BP 126/67
[2022-09-21] MEDS: ATORVASTATIN 20 MG TAB PO SCH (17:50)
[2022-09-21] MEDS: TAMSULOSIN HYDROCHLORIDE 0.4 MG CAP PO SCH (17:50)
[2022-09-21] MEDS: CITALOPRAM HYDROBR 20 MG TAB PO SCH (18:29)
[2022-09-21] MEDS: APIXABAN 5 MG TAB PO SCH (21:16)
[2022-09-21] MEDS: HYDROcodone-ACET 7.5/325MG TAB PO PRN (21:33)
[2022-09-21 22:00] VITALS: BP 117/70
[2022-09-22 05:00] VITALS: BP 112/54
[2022-09-22] MEDS: GABAPENTIN 300 MG CAP PO SCH ×3 (06:20→21:51)
[2022-09-22] MEDS: LEVOTHYROXINE SODIUM 88 MCG TAB PO SCH (06:20)
[2022-09-22] MEDS: ACCU-CHEK COMFORT CURVE STRIP VI SCH ×4 (06:22→21:52)
[2022-09-22] MEDS: InsuLIN REG 1unit/0.01ml Soln (100units/ml) SC SCH ×4 (06:25→22:02)
[2022-09-22 09:00] VITALS: BP 118/79
[2022-09-22] MEDS: PANTOPRAZOLE 40 MG/10 ML VIAL INJ IV SCH ×2 (09:16→21:51)
[2022-09-22] MEDS: CITALOPRAM HYDROBR 20 MG TAB PO SCH (09:16)
[2022-09-22] MEDS: AMIODARONE HCL 200 MG TAB PO SCH (09:16)
[2022-09-22] MEDS: APIXABAN 5 MG TAB PO SCH ×2 (09:16→21:51)
[2022-09-22] MEDS: BACITRACIN TOP OINT 1 UD PKG TOP SCH (09:16)
[2022-09-22] MEDS: POTASSIUM CHL 10 Meq TABLET PO SCH (09:17)
[2022-09-22] MEDS: CEFEPIME 2GM/50ML NS 50 ML IV SCH (09:17)
[2022-09-22] MEDS: SODIUM CHLOR 0.9% PF (SALINE LOCK) 10ML VIAL/SYR IV SCH ×2 (09:17→21:51)
[2022-09-22 13:00] VITALS: BP 125/74
[2022-09-22] MEDS: DOCUSATE SOD 100 MG CAP PO PRN (13:58)
[2022-09-22 17:00] VITALS: BP 126/70
[2022-09-22] MEDS: TAMSULOSIN HYDROCHLORIDE 0.4 MG CAP PO SCH (17:33)
[2022-09-22] MEDS: ATORVASTATIN 20 MG TAB PO SCH (17:33)
[2022-09-22] MEDS: HYDROcodone-ACET 7.5/325MG TAB PO PRN (21:52)
[2022-09-22 22:00] VITALS: BP 118/60
[2022-09-23 05:00] VITALS: BP 113/59
[2022-09-23] MEDS: GABAPENTIN 300 MG CAP PO SCH ×3 (06:26→22:17)
[2022-09-23] MEDS: ACCU-CHEK COMFORT CURVE STRIP VI SCH ×4 (06:26→22:17)
[2022-09-23] MEDS: LEVOTHYROXINE SODIUM 88 MCG TAB PO SCH (06:26)
[2022-09-23] MEDS: InsuLIN REG 1unit/0.01ml Soln (100units/ml) SC SCH ×4 (06:29→22:41)
[2022-09-23 06:41] LABS: Basophils # (auto) 0.1 10 ^3/uL (0-0.2); Basophils % (auto) 1.8 % (0.0-2.0); Eosinophils # (auto) 0.2 10 ^3/uL (0-0.8); Eosinophils % (auto) 3.9 % (0.0-7.0); Hematocrit 29.8 % (41.0-53.0); Hemoglobin 10.2 g/dL (13.5-17.5); Lymphocytes # (auto) 1.5 10 ^3/uL (0.4-5.4); Lymphocytes % (auto) 30.5 % (10.0-50.0); Mean Corpuscular Hemoglobin 32.7 pg (28.0-32.0); Mean Corpuscular Hgb Conc. 34.4 g/dL (32.0-36.0); Mean Corpuscular Volume 95.1 fL (80.0-100.0); Monocytes # (auto) 0.5 10 ^3/uL (0-1.3); Monocytes % (auto) 11.1 % (0.0-12.0); Neutrophils # (auto) 2.5 10 ^3/uL (1.6-8.6); Neutrophils % (auto) 52.7 % (37.0-80.0); Red Blood Cells 3.13 10^6/uL (4.5-5.90); Red Cell Distribution Width 17.9 % (11.8-14.3); White Blood Cell 4.8 10^3/uL (4.4-10.8)
[2022-09-23 07:00] LABS: BUN/Creatinine Ratio 22.5 (10.0-20.0); Calcium 8.5 mg/dL (8.5-10.1); Potassium 5.1 mmol/L (3.5-5.1)
[2022-09-23 09:00] VITALS: BP 117/65
[2022-09-23] MEDS: CITALOPRAM HYDROBR 20 MG TAB PO SCH (09:10)
[2022-09-23] MEDS: AMIODARONE HCL 200 MG TAB PO SCH (09:10)
[2022-09-23] MEDS: APIXABAN 5 MG TAB PO SCH ×2 (09:10→22:17)
[2022-09-23] MEDS: SODIUM CHLOR 0.9% PF (SALINE LOCK) 10ML VIAL/SYR IV SCH ×2 (09:11→22:17)
[2022-09-23] MEDS: BACITRACIN TOP OINT 1 UD PKG TOP SCH (09:11)
[2022-09-23] MEDS: POTASSIUM CHL 10 Meq TABLET PO SCH (09:12)
[2022-09-23] MEDS: PANTOPRAZOLE 40 MG/10 ML VIAL INJ IV SCH ×2 (10:38→22:17)
[2022-09-23 13:00] VITALS: BP 122/73
[2022-09-23 17:00] VITALS: BP 115/66
[2022-09-23] MEDS: TAMSULOSIN HYDROCHLORIDE 0.4 MG CAP PO SCH (18:05)
[2022-09-23] MEDS: ATORVASTATIN 20 MG TAB PO SCH (18:05)
[2022-09-23 22:00] VITALS: BP 120/70
[2022-09-23] MEDS: HYDROcodone-ACET 7.5/325MG TAB PO PRN (22:40)
[2022-09-24 05:00] VITALS: BP 109/64
[2022-09-24] MEDS: LEVOTHYROXINE SODIUM 88 MCG TAB PO SCH (06:09)
[2022-09-24] MEDS: GABAPENTIN 300 MG CAP PO SCH ×3 (06:10→22:06)
[2022-09-24] MEDS: ACCU-CHEK COMFORT CURVE STRIP VI SCH ×4 (06:10→22:08)
[2022-09-24] MEDS: InsuLIN REG 1unit/0.01ml Soln (100units/ml) SC SCH ×4 (06:27→22:22)
[2022-09-24 08:00] VITALS: BP 123/72
[2022-09-24] MEDS: POTASSIUM CHL 10 Meq TABLET PO SCH (09:26)
[2022-09-24] MEDS: PANTOPRAZOLE 40 MG/10 ML VIAL INJ IV SCH ×2 (09:29→22:06)
[2022-09-24] MEDS: APIXABAN 5 MG TAB PO SCH ×2 (09:30→22:06)
[2022-09-24] MEDS: AMIODARONE HCL 200 MG TAB PO SCH (09:30)
[2022-09-24] MEDS: SODIUM CHLOR 0.9% PF (SALINE LOCK) 10ML VIAL/SYR IV SCH ×2 (09:30→22:08)
[2022-09-24] MEDS: CITALOPRAM HYDROBR 20 MG TAB PO SCH (09:30)
[2022-09-24] MEDS: BACITRACIN TOP OINT 1 UD PKG TOP SCH (09:30)
[2022-09-24 12:00] VITALS: BP 130/79
[2022-09-24 16:00] VITALS: BP 105/56
[2022-09-24] MEDS: TAMSULOSIN HYDROCHLORIDE 0.4 MG CAP PO SCH (17:27)
[2022-09-24] MEDS: ATORVASTATIN 20 MG TAB PO SCH (17:28)
[2022-09-24 21:50] VITALS: BP 91/42
[2022-09-24] MEDS: HYDROcodone-ACET 7.5/325MG TAB PO PRN (22:07)
[2022-09-25 04:30] VITALS: BP 110/55
[2022-09-25] MEDS: LEVOTHYROXINE SODIUM 88 MCG TAB PO SCH (06:01)
[2022-09-25] MEDS: GABAPENTIN 300 MG CAP PO SCH ×3 (06:01→22:18)
[2022-09-25] MEDS: ACCU-CHEK COMFORT CURVE STRIP VI SCH ×4 (06:01→22:00)
[2022-09-25] MEDS: InsuLIN REG 1unit/0.01ml Soln (100units/ml) SC SCH ×4 (06:33→22:30)
[2022-09-25 06:59] LABS: Basophils # (auto) 0.1 10 ^3/uL (0-0.2); Basophils % (auto) 1.7 % (0.0-2.0); Eosinophils # (auto) 0.2 10 ^3/uL (0-0.8); Hematocrit 28.4 % (41.0-53.0); Hemoglobin 9.6 g/dL (13.5-17.5); Lymphocytes # (auto) 1.5 10 ^3/uL (0.4-5.4); Lymphocytes % (auto) 31.1 % (10.0-50.0); Mean Corpuscular Hemoglobin 32.9 pg (28.0-32.0); Mean Corpuscular Volume 96.8 fL (80.0-100.0); Monocytes # (auto) 0.5 10 ^3/uL (0-1.3); Monocytes % (auto) 9.8 % (0.0-12.0); Neutrophils # (auto) 2.6 10 ^3/uL (1.6-8.6); Neutrophils % (auto) 53.4 % (37.0-80.0); Nucleated Red Blood Cells % 0.2 %; Red Blood Cells 2.93 10^6/uL (4.5-5.90); Red Cell Distribution Width 18.5 % (11.8-14.3); White Blood Cell 4.9 10^3/uL (4.4-10.8)
[2022-09-25 07:13] LABS: BUN/Creatinine Ratio 21.7 (10.0-20.0); Calcium 8.3 mg/dL (8.5-10.1); Potassium 4.9 mmol/L (3.5-5.1)
[2022-09-25 08:00] VITALS: BP 119/79
[2022-09-25] MEDS: CITALOPRAM HYDROBR 20 MG TAB PO SCH (09:50)
[2022-09-25] MEDS: PANTOPRAZOLE 40 MG/10 ML VIAL INJ IV SCH ×2 (09:50→22:18)
[2022-09-25] MEDS: APIXABAN 5 MG TAB PO SCH ×2 (09:50→22:18)
[2022-09-25] MEDS: AMIODARONE HCL 200 MG TAB PO SCH (09:51)
[2022-09-25] MEDS: POTASSIUM CHL 10 Meq TABLET PO SCH (09:51)
[2022-09-25] MEDS: BACITRACIN TOP OINT 1 UD PKG TOP SCH (09:55)
[2022-09-25] MEDS: SODIUM CHLOR 0.9% PF (SALINE LOCK) 10ML VIAL/SYR IV SCH ×2 (09:55→22:00)
[2022-09-25] MEDS: DOCUSATE SOD 100 MG CAP PO PRN (09:55)
[2022-09-25 10:31] LABS: Urine Amorphous Crystal FEW /hpf (None Seen); Urine Bacteria FEW /hpf (None Seen); Urine Blood 2+ /uL (Negative); Urine Mucus FEW (None Seen); Urine Specific Gravity 1.011 (1.001-1.035); Urine WBC 14 /hpf (0 - 3); Urine WBC Clumps PRESENT /hpf (None Seen)
[2022-09-25 13:20] VITALS: BP 137/78
[2022-09-25 15:15] LABS: Protein, Urine 133.3 mg/dL (0.0-11.9)
[2022-09-25 17:00] VITALS: BP 103/54
[2022-09-25] MEDS: TAMSULOSIN HYDROCHLORIDE 0.4 MG CAP PO SCH (17:01)
[2022-09-25] MEDS: ATORVASTATIN 20 MG TAB PO SCH (17:01)
[2022-09-25 22:00] VITALS: BP 106/56
[2022-09-26 05:00] VITALS: BP 116/54
[2022-09-26] MEDS: ACCU-CHEK COMFORT CURVE STRIP VI SCH ×4 (06:25→21:59)
[2022-09-26] MEDS: LEVOTHYROXINE SODIUM 88 MCG TAB PO SCH (06:25)
[2022-09-26] MEDS: GABAPENTIN 300 MG CAP PO SCH ×3 (06:25→22:04)
[2022-09-26] MEDS: InsuLIN REG 1unit/0.01ml Soln (100units/ml) SC SCH ×4 (06:27→21:59)
[2022-09-26 06:44] LABS: Potassium 4.9 mmol/L (3.5-5.1)
[2022-09-26 06:50] LABS: Albumin 2.2 g/dL (3.4-5.0); BUN/Creatinine Ratio 21.8 (10.0-20.0); Calcium 8.1 mg/dL (8.5-10.1); Total Protein 6.7 g/dL (6.4-8.2); Uric Acid 4.5 mg/dL (3.5-7.2)
[2022-09-26 06:52] LABS: Bilirubin, Total 0.3 mg/dL (0.2-1.0); Phosphorus 2.9 mg/dL (2.5-4.90)
[2022-09-26 07:25] LABS: Bilirubin, Direct 0.1 mg/dL (0-0.2)
[2022-09-26] MEDS: AMIODARONE HCL 200 MG TAB PO SCH (09:23)
[2022-09-26] MEDS: APIXABAN 5 MG TAB PO SCH ×2 (09:23→22:04)
[2022-09-26] MEDS: PANTOPRAZOLE 40 MG/10 ML VIAL INJ IV SCH ×2 (09:23→22:01)
[2022-09-26] MEDS: BACITRACIN TOP OINT 1 UD PKG TOP SCH (09:24)
[2022-09-26] MEDS: CITALOPRAM HYDROBR 20 MG TAB PO SCH (09:24)
[2022-09-26] MEDS: POTASSIUM CHL 10 Meq TABLET PO SCH (09:24)
[2022-09-26] MEDS: SODIUM CHLOR 0.9% PF (SALINE LOCK) 10ML VIAL/SYR IV SCH ×2 (09:24→22:04)
[2022-09-26 11:08] VITALS: BP 106/64
[2022-09-26 15:13] VITALS: BP 109/64
[2022-09-26 17:28] VITALS: BP 110/70
[2022-09-26] MEDS: ATORVASTATIN 20 MG TAB PO SCH (17:52)
[2022-09-26] MEDS: TAMSULOSIN HYDROCHLORIDE 0.4 MG CAP PO SCH (17:52)
[2022-09-26] MEDS: HYDROcodone-ACET 7.5/325MG TAB PO PRN (22:58)
[2022-09-27 05:56] LABS: Calcium 8.3 mg/dL (8.5-10.1); Potassium 4.7 mmol/L (3.5-5.1)
[2022-09-27] MEDS: ACCU-CHEK COMFORT CURVE STRIP VI SCH ×4 (06:09→21:17)
[2022-09-27] MEDS: LEVOTHYROXINE SODIUM 88 MCG TAB PO SCH (06:09)
[2022-09-27] MEDS: GABAPENTIN 300 MG CAP PO SCH ×3 (06:09→21:22)
[2022-09-27] MEDS: InsuLIN REG 1unit/0.01ml Soln (100units/ml) SC SCH ×4 (06:17→21:21)
[2022-09-27 08:30] VITALS: BP 108/56
[2022-09-27] MEDS: AMIODARONE HCL 200 MG TAB PO SCH (10:29)
[2022-09-27] MEDS: APIXABAN 5 MG TAB PO SCH ×2 (10:29→21:23)
[2022-09-27] MEDS: PANTOPRAZOLE 40 MG/10 ML VIAL INJ IV SCH ×2 (10:29→21:27)
[2022-09-27] MEDS: CITALOPRAM HYDROBR 20 MG TAB PO SCH (10:29)
[2022-09-27] MEDS: POTASSIUM CHL 10 Meq TABLET PO SCH (10:29)
[2022-09-27] MEDS: BACITRACIN TOP OINT 1 UD PKG TOP SCH (10:29)
[2022-09-27] MEDS: SODIUM CHLOR 0.9% PF (SALINE LOCK) 10ML VIAL/SYR IV SCH ×2 (10:30→21:27)
[2022-09-27 16:30] VITALS: BP 122/78
[2022-09-27] MEDS: TAMSULOSIN HYDROCHLORIDE 0.4 MG CAP PO SCH (18:26)
[2022-09-27] MEDS: ATORVASTATIN 20 MG TAB PO SCH (18:27)
[2022-09-27] MEDS: HYDROcodone-ACET 7.5/325MG TAB PO PRN (20:48)
[2022-09-27 22:00] VITALS: BP 110/48
[2022-09-28 05:00] VITALS: BP_SYST 110; BP_SYST 129; BP_DIAS 61; BP_DIAS 87
[2022-09-28] MEDS: GABAPENTIN 300 MG CAP PO SCH ×3 (06:14→21:40)
[2022-09-28] MEDS: ACCU-CHEK COMFORT CURVE STRIP VI SCH ×4 (06:14→21:42)
[2022-09-28] MEDS: LEVOTHYROXINE SODIUM 88 MCG TAB PO SCH (06:14)
[2022-09-28] MEDS: InsuLIN REG 1unit/0.01ml Soln (100units/ml) SC SCH ×4 (06:17→21:48)
[2022-09-28] MEDS: PANTOPRAZOLE 40 MG/10 ML VIAL INJ IV SCH ×2 (09:35→21:47)
[2022-09-28] MEDS: BACITRACIN TOP OINT 1 UD PKG TOP SCH (09:36)
[2022-09-28] MEDS: AMIODARONE HCL 200 MG TAB PO SCH (09:36)
[2022-09-28] MEDS: APIXABAN 5 MG TAB PO SCH ×2 (09:36→21:40)
[2022-09-28] MEDS: SODIUM CHLOR 0.9% PF (SALINE LOCK) 10ML VIAL/SYR IV SCH ×2 (09:36→21:47)
[2022-09-28] MEDS: CITALOPRAM HYDROBR 20 MG TAB PO SCH (09:36)
[2022-09-28] MEDS: POTASSIUM CHL 10 Meq TABLET PO SCH (09:36)
[2022-09-28 09:57] VITALS: BP 119/65
[2022-09-28 14:07] VITALS: BP 125/70
[2022-09-28 16:58] VITALS: BP 103/49
[2022-09-28] MEDS: ATORVASTATIN 20 MG TAB PO SCH (17:45)
[2022-09-28] MEDS: TAMSULOSIN HYDROCHLORIDE 0.4 MG CAP PO SCH (17:45)
[2022-09-28 22:00] VITALS: BP 116/73
[2022-09-29 05:00] VITALS: BP 143/86
[2022-09-29] MEDS: GABAPENTIN 300 MG CAP PO SCH ×3 (06:16→21:31)
[2022-09-29] MEDS: LEVOTHYROXINE SODIUM 88 MCG TAB PO SCH (06:16)
[2022-09-29] MEDS: ACCU-CHEK COMFORT CURVE STRIP VI SCH ×4 (06:16→21:32)
[2022-09-29] MEDS: InsuLIN REG 1unit/0.01ml Soln (100units/ml) SC SCH ×4 (06:18→21:34)
[2022-09-29 09:00] VITALS: BP_SYST 139; BP_SYST 160; BP_DIAS 86; BP_DIAS 88
[2022-09-29] MEDS: PANTOPRAZOLE 40 MG/10 ML VIAL INJ IV SCH ×2 (10:41→21:36)
[2022-09-29] MEDS: SODIUM CHLOR 0.9% PF (SALINE LOCK) 10ML VIAL/SYR IV SCH ×2 (10:41→21:36)
[2022-09-29] MEDS: BACITRACIN TOP OINT 1 UD PKG TOP SCH (10:41)
[2022-09-29] MEDS: APIXABAN 5 MG TAB PO SCH ×2 (10:42→21:31)
[2022-09-29] MEDS: AMIODARONE HCL 200 MG TAB PO SCH (10:42)
[2022-09-29] MEDS: POTASSIUM CHL 10 Meq TABLET PO SCH (10:42)
[2022-09-29] MEDS: CITALOPRAM HYDROBR 20 MG TAB PO SCH (10:43)
[2022-09-29] MEDS: HYDROcodone-ACET 7.5/325MG TAB PO PRN ×2 (11:00→20:54)
[2022-09-29 13:00] VITALS: BP 118/59
[2022-09-29 17:00] VITALS: BP_SYST 112; BP_SYST 113; BP_DIAS 63; BP_DIAS 64
[2022-09-29] MEDS: ATORVASTATIN 20 MG TAB PO SCH (18:21)
[2022-09-29] MEDS: TAMSULOSIN HYDROCHLORIDE 0.4 MG CAP PO SCH (18:21)
[2022-09-29 22:00] VITALS: BP 108/62
[2022-09-30 05:00] VITALS: BP 116/59
[2022-09-30] MEDS: LEVOTHYROXINE SODIUM 88 MCG TAB PO SCH (06:22)
[2022-09-30] MEDS: ACCU-CHEK COMFORT CURVE STRIP VI SCH ×4 (06:22→21:18)
[2022-09-30] MEDS: GABAPENTIN 300 MG CAP PO SCH ×3 (06:22→21:13)
[2022-09-30] MEDS: InsuLIN REG 1unit/0.01ml Soln (100units/ml) SC SCH ×4 (06:25→21:18)
[2022-09-30 06:32] LABS: Basophils # (auto) 0 10 ^3/uL (0-0.2); Eosinophils # (auto) 0.3 10 ^3/uL (0-0.8); Eosinophils % (auto) 7.3 % (0.0-7.0); Hematocrit 29.3 % (41.0-53.0); Hemoglobin 10.1 g/dL (13.5-17.5); Lymphocytes # (auto) 1.7 10 ^3/uL (0.4-5.4); Lymphocytes % (auto) 39.6 % (10.0-50.0); Mean Corpuscular Hemoglobin 33.8 pg (28.0-32.0); Mean Corpuscular Hgb Conc. 34.4 g/dL (32.0-36.0); Mean Corpuscular Volume 98.2 fL (80.0-100.0); Monocytes # (auto) 0.4 10 ^3/uL (0-1.3); Neutrophils # (auto) 1.8 10 ^3/uL (1.6-8.6); Neutrophils % (auto) 42.1 % (37.0-80.0); Nucleated Red Blood Cells % 0.1 %; Red Blood Cells 2.98 10^6/uL (4.5-5.90); Red Cell Distribution Width 19.4 % (11.8-14.3); White Blood Cell 4.2 10^3/uL (4.4-10.8)
[2022-09-30 07:05] LABS: Potassium 5.5 mmol/L (3.5-5.1)
[2022-09-30 07:16] LABS: BUN/Creatinine Ratio 22.5 (10.0-20.0); Calcium 8.3 mg/dL (8.5-10.1)
[2022-09-30 09:00] VITALS: BP 116/63
[2022-09-30] MEDS: POTASSIUM CHL 10 Meq TABLET PO SCH (10:37)
[2022-09-30] MEDS: PANTOPRAZOLE 40 MG/10 ML VIAL INJ IV SCH ×2 (10:37→21:14)
[2022-09-30] MEDS: SODIUM CHLOR 0.9% PF (SALINE LOCK) 10ML VIAL/SYR IV SCH ×2 (10:37→21:14)
[2022-09-30] MEDS: BACITRACIN TOP OINT 1 UD PKG TOP SCH (10:37)
[2022-09-30] MEDS: AMIODARONE HCL 200 MG TAB PO SCH (10:38)
[2022-09-30] MEDS: CITALOPRAM HYDROBR 20 MG TAB PO SCH (10:38)
[2022-09-30] MEDS: APIXABAN 5 MG TAB PO SCH ×2 (10:43→21:13)
[2022-09-30 13:00] VITALS: BP 117/67
[2022-09-30 16:36] VITALS: BP 118/62
[2022-09-30] MEDS: HYDROcodone-ACET 7.5/325MG TAB PO PRN (17:46)
[2022-09-30] MEDS: ATORVASTATIN 20 MG TAB PO SCH (17:50)
[2022-09-30] MEDS: TAMSULOSIN HYDROCHLORIDE 0.4 MG CAP PO SCH (17:50)
[2022-09-30 22:00] VITALS: BP 105/55
[2022-10-01] MEDS: HYDROcodone-ACET 7.5/325MG TAB PO PRN ×2 (01:02→22:12)
[2022-10-01 05:00] VITALS: BP 103/49
[2022-10-01] MEDS: LEVOTHYROXINE SODIUM 88 MCG TAB PO SCH (06:02)
[2022-10-01] MEDS: GABAPENTIN 300 MG CAP PO SCH ×3 (06:02→21:06)
[2022-10-01] MEDS: ACCU-CHEK COMFORT CURVE STRIP VI SCH ×4 (06:05→21:07)
[2022-10-01] MEDS: InsuLIN REG 1unit/0.01ml Soln (100units/ml) SC SCH ×4 (06:07→21:15)
[2022-10-01 08:51] LABS: Basophils # (auto) 0 10 ^3/uL (0-0.2); Basophils % (auto) 0.9 % (0.0-2.0); Eosinophils # (auto) 0.3 10 ^3/uL (0-0.8); Eosinophils % (auto) 7.5 % (0.0-7.0); Hematocrit 30.7 % (41.0-53.0); Hemoglobin 10.5 g/dL (13.5-17.5); Lymphocytes # (auto) 1.4 10 ^3/uL (0.4-5.4); Lymphocytes % (auto) 38.6 % (10.0-50.0); Mean Corpuscular Hemoglobin 33.7 pg (28.0-32.0); Mean Corpuscular Hgb Conc. 34.3 g/dL (32.0-36.0); Mean Corpuscular Volume 98.2 fL (80.0-100.0); Monocytes # (auto) 0.3 10 ^3/uL (0-1.3); Monocytes % (auto) 9.3 % (0.0-12.0); Neutrophils # (auto) 1.6 10 ^3/uL (1.6-8.6); Neutrophils % (auto) 43.7 % (37.0-80.0); Nucleated Red Blood Cells % 0.2 %; Red Blood Cells 3.13 10^6/uL (4.5-5.90); Red Cell Distribution Width 19.6 % (11.8-14.3); White Blood Cell 3.6 10^3/uL (4.4-10.8)
[2022-10-01 09:00] VITALS: BP 110/58
[2022-10-01 09:10] LABS: BUN/Creatinine Ratio 21.9 (10.0-20.0); Calcium 8.4 mg/dL (8.5-10.1); Potassium 4.8 mmol/L (3.5-5.1)
[2022-10-01] MEDS: AMIODARONE HCL 200 MG TAB PO SCH (10:19)
[2022-10-01] MEDS: SODIUM CHLOR 0.9% PF (SALINE LOCK) 10ML VIAL/SYR IV SCH ×2 (10:19→21:06)
[2022-10-01] MEDS: PANTOPRAZOLE 40 MG/10 ML VIAL INJ IV SCH ×2 (10:19→21:06)
[2022-10-01] MEDS: CITALOPRAM HYDROBR 20 MG TAB PO SCH (10:19)
[2022-10-01] MEDS: POTASSIUM CHL 10 Meq TABLET PO SCH (10:19)
[2022-10-01] MEDS: APIXABAN 2.5 MG TAB PO SCH ×2 (11:29→21:06)
[2022-10-01 17:00] VITALS: BP 101/53
[2022-10-01] MEDS: ATORVASTATIN 20 MG TAB PO SCH (18:11)
[2022-10-01] MEDS: TAMSULOSIN HYDROCHLORIDE 0.4 MG CAP PO SCH (18:11)
[2022-10-01 22:00] VITALS: BP 108/53
[2022-10-02 05:00] VITALS: BP 133/78
[2022-10-02] MEDS: GABAPENTIN 300 MG CAP PO SCH ×3 (06:18→21:44)
[2022-10-02] MEDS: LEVOTHYROXINE SODIUM 88 MCG TAB PO SCH (06:18)
[2022-10-02] MEDS: ACCU-CHEK COMFORT CURVE STRIP VI SCH ×4 (06:20→21:45)
[2022-10-02] MEDS: InsuLIN REG 1unit/0.01ml Soln (100units/ml) SC SCH ×4 (06:22→21:55)
[2022-10-02 09:00] VITALS: BP 99/58
[2022-10-02 09:41] LABS: Calcium 8.2 mg/dL (8.5-10.1); Potassium 4.8 mmol/L (3.5-5.1)
[2022-10-02] MEDS: PANTOPRAZOLE 40 MG/10 ML VIAL INJ IV SCH (09:57)
[2022-10-02] MEDS: SODIUM CHLOR 0.9% PF (SALINE LOCK) 10ML VIAL/SYR IV SCH ×2 (09:58→21:45)
[2022-10-02] MEDS: APIXABAN 5 MG TAB PO SCH ×2 (09:58→21:44)
[2022-10-02] MEDS: CITALOPRAM HYDROBR 20 MG TAB PO SCH (09:58)
[2022-10-02] MEDS: POTASSIUM CHL 10 Meq TABLET PO SCH (09:58)
[2022-10-02] MEDS: HYDROcodone-ACET 7.5/325MG TAB PO PRN ×2 (09:59→21:44)
[2022-10-02] MEDS: AMIODARONE HCL 200 MG TAB PO SCH (09:59)
[2022-10-02 13:16] VITALS: BP_SYST 107; BP_SYST 146; BP_DIAS 61; BP_DIAS 67
[2022-10-02 17:00] VITALS: BP 109/67
[2022-10-02] MEDS: TAMSULOSIN HYDROCHLORIDE 0.4 MG CAP PO SCH (17:54)
[2022-10-02] MEDS: ATORVASTATIN 20 MG TAB PO SCH (17:55)
[2022-10-02] MEDS: PANTOPRAZOLE 40 MG TAB PO SCH (21:44)
[2022-10-02 22:00] VITALS: BP 116/62
[2022-10-03 05:00] VITALS: BP 132/78
[2022-10-03] MEDS: ACCU-CHEK COMFORT CURVE STRIP VI SCH ×4 (06:15→21:42)
[2022-10-03] MEDS: InsuLIN REG 1unit/0.01ml Soln (100units/ml) SC SCH ×4 (06:15→21:44)
[2022-10-03] MEDS: LEVOTHYROXINE SODIUM 88 MCG TAB PO SCH (06:15)
[2022-10-03] MEDS: GABAPENTIN 300 MG CAP PO SCH ×3 (06:15→21:42)
[2022-10-03 06:21] LABS: Potassium 4.9 mmol/L (3.5-5.1)
[2022-10-03 06:42] LABS: BUN/Creatinine Ratio 24.2 (10.0-20.0); Calcium 8.3 mg/dL (8.5-10.1)
[2022-10-03 09:00] VITALS: BP 134/73
[2022-10-03] MEDS: SODIUM CHLOR 0.9% PF (SALINE LOCK) 10ML VIAL/SYR IV SCH ×2 (10:25→21:42)
[2022-10-03] MEDS: POTASSIUM CHL 10 Meq TABLET PO SCH (10:26)
[2022-10-03] MEDS: PANTOPRAZOLE 40 MG TAB PO SCH ×2 (10:26→21:42)
[2022-10-03] MEDS: AMIODARONE HCL 200 MG TAB PO SCH (10:27)
[2022-10-03] MEDS: CITALOPRAM HYDROBR 20 MG TAB PO SCH (10:27)
[2022-10-03] MEDS: APIXABAN 5 MG TAB PO SCH ×2 (10:28→21:42)
[2022-10-03 12:48] VITALS: BP 146/83
[2022-10-03] MEDS: DOCUSATE SOD 100 MG CAP PO PRN (14:07)
[2022-10-03 16:59] VITALS: BP 134/77
[2022-10-03] MEDS: ATORVASTATIN 20 MG TAB PO SCH (17:06)
[2022-10-03] MEDS: TAMSULOSIN HYDROCHLORIDE 0.4 MG CAP PO SCH (17:07)
[2022-10-03] MEDS: HYDROcodone-ACET 7.5/325MG TAB PO PRN (20:20)
[2022-10-03 22:00] VITALS: BP 116/60
[2022-10-04 05:00] VITALS: BP 126/69
[2022-10-04] MEDS: DOCUSATE SOD 100 MG CAP PO PRN ×2 (06:06→10:06)
[2022-10-04] MEDS: ACCU-CHEK COMFORT CURVE STRIP VI SCH ×4 (06:07→21:34)
[2022-10-04] MEDS: LEVOTHYROXINE SODIUM 88 MCG TAB PO SCH (06:07)
[2022-10-04] MEDS: InsuLIN REG 1unit/0.01ml Soln (100units/ml) SC SCH ×4 (06:07→21:42)
[2022-10-04] MEDS: GABAPENTIN 300 MG CAP PO SCH ×3 (06:07→21:22)
[2022-10-04 09:00] VITALS: BP_SYST 122; BP_SYST 144; BP_DIAS 75; BP_DIAS 86
[2022-10-04] MEDS: APIXABAN 5 MG TAB PO SCH ×2 (10:06→21:23)
[2022-10-04] MEDS: SODIUM CHLOR 0.9% PF (SALINE LOCK) 10ML VIAL/SYR IV SCH ×2 (10:06→21:23)
[2022-10-04] MEDS: POTASSIUM CHL 10 Meq TABLET PO SCH (10:06)
[2022-10-04] MEDS: AMIODARONE HCL 200 MG TAB PO SCH (10:06)
[2022-10-04] MEDS: PANTOPRAZOLE 40 MG TAB PO SCH ×2 (10:06→21:22)
[2022-10-04] MEDS: CITALOPRAM HYDROBR 20 MG TAB PO SCH (10:07)
[2022-10-04 13:00] VITALS: BP 130/73
[2022-10-04 17:00] VITALS: BP 128/71
[2022-10-04] MEDS: ATORVASTATIN 20 MG TAB PO SCH (18:31)
[2022-10-04] MEDS: TAMSULOSIN HYDROCHLORIDE 0.4 MG CAP PO SCH (18:31)
[2022-10-04] MEDS: HYDROcodone-ACET 7.5/325MG TAB PO PRN (21:33)
[2022-10-04 22:00] VITALS: BP 127/77
[2022-10-05 05:00] VITALS: BP 128/75
[2022-10-05] MEDS: GABAPENTIN 300 MG CAP PO SCH ×3 (06:04→21:26)
[2022-10-05] MEDS: LEVOTHYROXINE SODIUM 88 MCG TAB PO SCH (06:04)
[2022-10-05] MEDS: InsuLIN REG 1unit/0.01ml Soln (100units/ml) SC SCH ×4 (06:11→21:40)
[2022-10-05] MEDS: ACCU-CHEK COMFORT CURVE STRIP VI SCH ×4 (06:45→21:26)
[2022-10-05 09:10] VITALS: BP 122/68
[2022-10-05] MEDS: PANTOPRAZOLE 40 MG TAB PO SCH ×2 (09:55→21:26)
[2022-10-05] MEDS: APIXABAN 5 MG TAB PO SCH ×2 (09:56→21:26)
[2022-10-05] MEDS: CITALOPRAM HYDROBR 20 MG TAB PO SCH (09:56)
[2022-10-05] MEDS: POTASSIUM CHL 10 Meq TABLET PO SCH (09:56)
[2022-10-05] MEDS: SODIUM CHLOR 0.9% PF (SALINE LOCK) 10ML VIAL/SYR IV SCH ×2 (09:56→21:25)
[2022-10-05] MEDS: AMIODARONE HCL 200 MG TAB PO SCH (09:56)
[2022-10-05 13:00] VITALS: BP 122/74
[2022-10-05 17:00] VITALS: BP 127/65
[2022-10-05] MEDS: TAMSULOSIN HYDROCHLORIDE 0.4 MG CAP PO SCH (17:21)
[2022-10-05] MEDS: ATORVASTATIN 20 MG TAB PO SCH (17:21)
[2022-10-05] MEDS: HYDROcodone-ACET 7.5/325MG TAB PO PRN (21:36)
[2022-10-05 22:00] VITALS: BP_SYST 105; BP_SYST 126; BP_DIAS 50; BP_DIAS 67
[2022-10-06 05:00] VITALS: BP 117/54
[2022-10-06] MEDS: LEVOTHYROXINE SODIUM 88 MCG TAB PO SCH (06:10)
[2022-10-06] MEDS: GABAPENTIN 300 MG CAP PO SCH ×3 (06:10→21:31)
[2022-10-06] MEDS: ACCU-CHEK COMFORT CURVE STRIP VI SCH ×4 (06:13→21:31)
[2022-10-06] MEDS: InsuLIN REG 1unit/0.01ml Soln (100units/ml) SC SCH ×4 (06:13→21:42)
[2022-10-06 09:00] VITALS: BP 117/55
[2022-10-06] MEDS: DOCUSATE SOD 100 MG CAP PO PRN (09:38)
[2022-10-06] MEDS: CITALOPRAM HYDROBR 20 MG TAB PO SCH (09:38)
[2022-10-06] MEDS: AMIODARONE HCL 200 MG TAB PO SCH (09:38)
[2022-10-06] MEDS: POTASSIUM CHL 10 Meq TABLET PO SCH (09:38)
[2022-10-06] MEDS: PANTOPRAZOLE 40 MG TAB PO SCH ×2 (09:38→21:31)
[2022-10-06] MEDS: SODIUM CHLOR 0.9% PF (SALINE LOCK) 10ML VIAL/SYR IV SCH ×2 (09:38→21:32)
[2022-10-06] MEDS: APIXABAN 5 MG TAB PO SCH ×2 (09:38→21:31)
[2022-10-06 13:00] VITALS: BP 125/71
[2022-10-06 17:00] VITALS: BP 104/46
[2022-10-06] MEDS: TAMSULOSIN HYDROCHLORIDE 0.4 MG CAP PO SCH (17:16)
[2022-10-06] MEDS: ATORVASTATIN 20 MG TAB PO SCH (17:16)
[2022-10-06 22:00] VITALS: BP_SYST 106; BP_SYST 125; BP_DIAS 51; BP_DIAS 69
[2022-10-06] MEDS: HYDROcodone-ACET 7.5/325MG TAB PO PRN (22:46)
[2022-10-07 05:00] VITALS: BP 111/51
[2022-10-07] MEDS: ACCU-CHEK COMFORT CURVE STRIP VI SCH ×4 (06:02→21:48)
[2022-10-07] MEDS: LEVOTHYROXINE SODIUM 88 MCG TAB PO SCH (06:25)
[2022-10-07] MEDS: GABAPENTIN 300 MG CAP PO SCH ×3 (06:25→21:58)
[2022-10-07] MEDS: InsuLIN REG 1unit/0.01ml Soln (100units/ml) SC SCH ×4 (06:26→21:51)
[2022-10-07] MEDS: CITALOPRAM HYDROBR 20 MG TAB PO SCH (08:59)
[2022-10-07 09:00] VITALS: BP 130/64
[2022-10-07] MEDS: AMIODARONE HCL 200 MG TAB PO SCH (09:00)
[2022-10-07] MEDS: APIXABAN 5 MG TAB PO SCH ×2 (09:00→21:58)
[2022-10-07] MEDS: PANTOPRAZOLE 40 MG TAB PO SCH ×2 (09:00→21:58)
[2022-10-07] MEDS: POTASSIUM CHL 10 Meq TABLET PO SCH (09:01)
[2022-10-07] MEDS: SODIUM CHLOR 0.9% PF (SALINE LOCK) 10ML VIAL/SYR IV SCH ×2 (09:02→21:58)
[2022-10-07 13:00] VITALS: BP 123/67
[2022-10-07 17:00] VITALS: BP 129/69
[2022-10-07] MEDS: ATORVASTATIN 20 MG TAB PO SCH (17:03)
[2022-10-07] MEDS: TAMSULOSIN HYDROCHLORIDE 0.4 MG CAP PO SCH (17:52)
[2022-10-07] MEDS: TICAGRELOR 60 MG TAB PO SCH (21:58)
[2022-10-07 22:00] VITALS: BP 118/58
[2022-10-07] MEDS: HYDROcodone-ACET 7.5/325MG TAB PO PRN (23:53)
[2022-10-08 05:00] VITALS: BP 120/64
[2022-10-08 06:14] LABS: Albumin 2.7 g/dL (3.4-5.0); Calcium 8.8 mg/dL (8.5-10.1); Magnesium 1.6 mg/dL (1.6-2.6); Potassium 4.6 mmol/L (3.5-5.1)
[2022-10-08 06:20] LABS: BUN/Creatinine Ratio 26.3 (10.0-20.0); Bilirubin, Total 0.5 mg/dL (0.2-1.0)
[2022-10-08 06:30] LABS: Eosinophils # (auto) 0.2 10 ^3/uL (0-0.8); Hemoglobin 11.1 g/dL (13.5-17.5); Mean Corpuscular Hemoglobin 34.4 pg (28.0-32.0); Mean Corpuscular Hgb Conc. 34.5 g/dL (32.0-36.0); Monocytes # (auto) 0.5 10 ^3/uL (0-1.3); Monocytes % (auto) 8.6 % (0.0-12.0); Neutrophils # (auto) 3.1 10 ^3/uL (1.6-8.6); Nucleated Red Blood Cells % 0.1 %
[2022-10-08 06:32] LABS: Basophils # (auto) 0 10 ^3/uL (0-0.2); Basophils % (auto) 0.7 % (0.0-2.0); Hematocrit 32.1 % (41.0-53.0); Lymphocytes # (auto) 1.6 10 ^3/uL (0.4-5.4); Lymphocytes % (auto) 29.4 % (10.0-50.0); Mean Corpuscular Volume 99.7 fL (80.0-100.0); Neutrophils % (auto) 57.3 % (37.0-80.0); Red Blood Cells 3.22 10^6/uL (4.5-5.90); Red Cell Distribution Width 19.6 % (11.8-14.3); White Blood Cell 5.5 10^3/uL (4.4-10.8)
[2022-10-08] MEDS: GABAPENTIN 300 MG CAP PO SCH ×3 (06:40→22:45)
[2022-10-08] MEDS: ACCU-CHEK COMFORT CURVE STRIP VI SCH ×5 (06:41→22:45)
[2022-10-08] MEDS: InsuLIN REG 1unit/0.01ml Soln (100units/ml) SC SCH ×4 (06:41→22:00)
[2022-10-08] MEDS: LEVOTHYROXINE SODIUM 88 MCG TAB PO SCH (06:41)
[2022-10-08 09:00] VITALS: BP_SYST 140; BP_SYST 143; BP_DIAS 62; BP_DIAS 75
[2022-10-08] MEDS: PANTOPRAZOLE 40 MG TAB PO SCH ×2 (09:19→22:45)
[2022-10-08] MEDS: TICAGRELOR 60 MG TAB PO SCH ×2 (09:19→22:45)
[2022-10-08] MEDS: APIXABAN 5 MG TAB PO SCH ×2 (09:19→22:00)
[2022-10-08] MEDS: CITALOPRAM HYDROBR 20 MG TAB PO SCH (09:19)
[2022-10-08] MEDS: AMIODARONE HCL 200 MG TAB PO SCH (09:19)
[2022-10-08] MEDS: SODIUM CHLOR 0.9% PF (SALINE LOCK) 10ML VIAL/SYR IV SCH ×2 (09:19→22:00)
[2022-10-08 13:15] VITALS: BP 150/59
[2022-10-08 16:27] VITALS: BP 138/88
[2022-10-08] MEDS: TAMSULOSIN HYDROCHLORIDE 0.4 MG CAP PO SCH (17:21)
[2022-10-08] MEDS: ATORVASTATIN 20 MG TAB PO SCH (17:21)
[2022-10-08 22:00] VITALS: BP 107/62
[2022-10-09 05:00] VITALS: BP 134/57
[2022-10-09] MEDS: GABAPENTIN 300 MG CAP PO SCH ×2 (06:30→13:01)
[2022-10-09] MEDS: LEVOTHYROXINE SODIUM 88 MCG TAB PO SCH (06:30)
[2022-10-09] MEDS: ACCU-CHEK COMFORT CURVE STRIP VI SCH ×3 (06:30→17:38)
[2022-10-09] MEDS: InsuLIN REG 1unit/0.01ml Soln (100units/ml) SC SCH ×3 (06:39→17:38)
[2022-10-09 08:34] VITALS: BP 135/74
[2022-10-09] MEDS: AMIODARONE HCL 200 MG TAB PO SCH (09:46)
[2022-10-09] MEDS: PANTOPRAZOLE 40 MG TAB PO SCH (09:46)
[2022-10-09] MEDS: APIXABAN 5 MG TAB PO SCH (09:46)
[2022-10-09] MEDS: SODIUM CHLOR 0.9% PF (SALINE LOCK) 10ML VIAL/SYR IV SCH (09:46)
[2022-10-09] MEDS: CITALOPRAM HYDROBR 20 MG TAB PO SCH (09:46)
[2022-10-09] MEDS: TICAGRELOR 60 MG TAB PO SCH (09:47)
[2022-10-09 12:40] VITALS: BP 120/65
[2022-10-09 16:44] VITALS: BP 131/85
[2022-10-09] MEDS: TAMSULOSIN HYDROCHLORIDE 0.4 MG CAP PO SCH (17:45)
[2022-10-09] MEDS: ATORVASTATIN 20 MG TAB PO SCH (17:45)
== END 2022-10-09 18:27 | DRG 853 ==
LOC: EDBD 13:05 → ER 13:05 → TELE 19:22 → TELE-WESTW 09-06 07:41 → ICU WEST 09-07 07:17 → TELE-CENTR 09-13 17:47 → CENTRAL 09-26 04:50
PROVIDERS: ADMIT Nurse Practitioner Family; ATTEND Internal Medicine
PROC: 0YBM0ZZ Excision of Right Foot, Open Approach (ICD-10-PCS; 2022-09-06)
PROC: 0Y6H0Z3 Detachment at Right Lower Leg, Low, Open Approach (ICD-10-PCS; principal; 2022-09-10 08:28)
PROC: 30233N1 Transfusion of Nonautologous Red Blood Cells into Peripheral Vein, Percutaneous Approach (ICD-10-PCS; 2022-09-11)
DX: A41.9 Sepsis, unspecified organism (principal); A48.0 Gas gangrene; E43 Unspecified severe protein-calorie malnutrition; R65.21 Severe sepsis with septic shock; G93.41 Metabolic encephalopathy; E87.1 Hypo-osmolality and hyponatremia; L97.419 Non-pressure chronic ulcer of right heel and midfoot with unspecified severity; E11.52 Type 2 diabetes mellitus with diabetic peripheral angiopathy with gangrene; E87.20 Acidosis, unspecified; N39.0 Urinary tract infection, site not specified; L03.115 Cellulitis of right lower limb; M86.8X6 Other osteomyelitis, lower leg; N17.9 Acute kidney failure, unspecified; E11.622 Type 2 diabetes mellitus with other skin ulcer; E11.69 Type 2 diabetes mellitus with other specified complication; D64.9 Anemia, unspecified; E11.40 Type 2 diabetes mellitus with diabetic neuropathy, unspecified; E11.621 Type 2 diabetes mellitus with foot ulcer; E66.9 Obesity, unspecified; I48.91 Unspecified atrial fibrillation; I25.10 Atherosclerotic heart disease of native coronary artery without angina pectoris; E11.628 Type 2 diabetes mellitus with other skin complications; L97.519 Non-pressure chronic ulcer of other part of right foot with unspecified severity; N14.19 Nephropathy induced by other drugs, medicaments and biological substances; T36.8X5A Adverse effect of other systemic antibiotics, initial encounter; E11.22 Type 2 diabetes mellitus with diabetic chronic kidney disease; I12.9 Hypertensive chronic kidney disease with stage 1 through stage 4 chronic kidney disease, or unspecified chronic kidney disease; F17.200 Nicotine dependence, unspecified, uncomplicated; N18.32 Chronic kidney disease, stage 3b; N40.0 Benign prostatic hyperplasia without lower urinary tract symptoms; Z95.0 Presence of cardiac pacemaker; Z79.01 Long term (current) use of anticoagulants; Z79.02 Long term (current) use of antithrombotics/antiplatelets; Z91.199 Patient's noncompliance with other medical treatment and regimen due to unspecified reason; Z88.0 Allergy status to penicillin; Z79.2 Long term (current) use of antibiotics; Z83.3 Family history of diabetes mellitus; Z82.49 Family history of ischemic heart disease and other diseases of the circulatory system; Z88.6 Allergy status to analgesic agent; Z95.5 Presence of coronary angioplasty implant and graft; Z75.1 Person awaiting admission to adequate facility elsewhere; I25.2 Old myocardial infarction; Z68.38 Body mass index [BMI] 38.0-38.9, adult; Y92.89 Other specified places as the place of occurrence of the external cause
CPT/HCPCS: 36415; 36569; 70450; 71045; 72131; 73700; 80048; 80053; 80076; 80202; 81001; 82306; 82550; 82570; 82962; 83036; 83605; 83735; 83930; 83935; 84100; 84154; 84156; 84300; 84439; 84443; 84484; 84550; 85025; 85610; 85652; 85730; 86141; 86850; 86900; 86901; 86920; 87040; 87077; 87081; 87086; 87186; 87205; 87493; 93005; 93926; 93971; 95819; 96361; 96365; 97110; 97116; 97163; 97530; C9113; G0378; J0692; J1100; J1815; J2001; J2250; J2405; J2543; J7060; P9047

== ENCOUNTER → 2023-07-21 | Outpatient (CLI) | payer MEDICAID ==
[~2023-07-21] VITALS: Ht 167.6 cm; Wt 113.4 kg
[~2023-07-21] MED LIST changes: -ASPI81CH49 PO; -ATO40T PO; +ATOR-507 PO; -CARV6.25 PO; +CARV6.2517 PO; +CITA-77 PO; +CLOP75TA70 PO; +POTA-36 PO; -POTA10TA51 PO; +ROPI0.5T26 PO; -ROPI0.5T4 PO; -TICA90TA PO
[2023-07-21] MEDS: ADENOSINE 95 MG in GIVE UN-DILUTED 0 ML IV STA (12:56)
== END | disposition home or self-care (01) ==
LOC: XYW 10:25
PROVIDERS: ATTEND Student in an Organized Health Care Education/Training Program
DX: I25.10 Atherosclerotic heart disease of native coronary artery without angina pectoris (principal); R06.02 Shortness of breath; I25.9 Chronic ischemic heart disease, unspecified; I48.91 Unspecified atrial fibrillation; I10 Essential (primary) hypertension; E78.5 Hyperlipidemia, unspecified; E11.69 Type 2 diabetes mellitus with other specified complication; Z95.0 Presence of cardiac pacemaker
CPT/HCPCS: 78452; 93017; A9500; J0153

== ENCOUNTER → 2023-07-22 | Outpatient (CLI) | payer MEDICAID | END | disposition home or self-care (01) | LOC: XYW 12:22 | PROVIDERS: ATTEND Student in an Organized Health Care Education/Training Program | DX: I35.1 Nonrheumatic aortic (valve) insufficiency (principal); I35.8 Other nonrheumatic aortic valve disorders; I51.7 Cardiomegaly; I25.10 Atherosclerotic heart disease of native coronary artery without angina pectoris | CPT/HCPCS: 93306 ==

== ENCOUNTER 2023-09-24 10:03 | Day surgery (SDC) | payer MEDICAID ==
[2023-09-23 11:02] LABS: Eosinophils # (auto) 0.2 10 ^3/uL (0-0.8); Eosinophils % (auto) 3.8 % (0.0-7.0); Lymphocytes # (auto) 1.2 10 ^3/uL (0.4-5.4); Monocytes # (auto) 0.5 10 ^3/uL (0-1.3); Monocytes % (auto) 8.7 % (0.0-12.0); Neutrophils # (auto) 3.5 10 ^3/uL (1.6-8.6)
[2023-09-23 11:04] LABS: Basophils # (auto) 0 10 ^3/uL (0-0.2); Basophils % (auto) 0.5 % (0.0-2.0); Hematocrit 42.2 % (41.0-53.0); Hemoglobin 14.6 g/dL (13.5-17.5); Lymphocytes % (auto) 22.5 % (10.0-50.0); Mean Corpuscular Hemoglobin 35.7 pg (28.0-32.0); Mean Corpuscular Hgb Conc. 34.7 g/dL (32.0-36.0); Mean Corpuscular Volume 102.9 fL (80.0-100.0); Neutrophils % (auto) 64.5 % (37.0-80.0); Red Cell Distribution Width 13.3 % (11.8-14.3); White Blood Cell 5.4 10^3/uL (4.4-10.8)
[2023-09-23 11:08] LABS: INR 1.05 (0.9-1.15); Partial Thromboplastin Time 24.4 SEC (24.5-34.5); Prothrombin Time 11.1 sec (9.3-11.8)
[2023-09-23 11:20] LABS: Alanine Aminotransferase 14 U/L (7-40); Alkaline Phosphatase 69 U/L (46-116); Anion Gap 3 (5-15); Aspartate Aminotransferase 12 U/L (13-40); Bilirubin, Total 0.6 mg/dL (0.2-1.0); Blood Urea Nitrogen 35 mg/dL (9-23); Calcium 9.5 mg/dL (8.5-10.1); Carbon Dioxide 29 mmol/L (20-30); Chloride 103 mmol/L (98-107); Glucose 224 mg/dL (74-106); Sodium 135 mmol/L (136-145)
[~2023-09-24] VITALS: Ht 167.6 cm; Wt 113.4 kg
[2023-09-24] VITALS (7 sets, daily range): BP systolic 125–156; BP diastolic 80–100; PULSE 91–98; RESP 12–18; O2SAT 92–97
[~2023-09-24 10:03] MED LIST changes: -FURO1TAB31 PO
[2023-09-24] MEDS ORDERED: INSLISPI SC (10:30)
[2023-09-24] MEDS ORDERED: INSU100I70 SC (10:30)
[2023-09-24] MEDS ORDERED: FAMO-12 PO (10:30)
[2023-09-24] MEDS ORDERED: ERTU15TA PO (10:30)
[2023-09-24] MEDS ORDERED: CHOL20007 OR (10:30)
[2023-09-24] MEDS ORDERED: FLUT0.05 NAS (10:30)
[2023-09-24] MEDS ORDERED: APIX5TAB PO (10:30)
[2023-09-24] MEDS: hydrALAZINE HCL 20 MG/ML VL IV ONE (12:35)
[2023-09-24] MEDS ORDERED: HEPARIN SODIUM (PORCINE) 5000 UNITS/ML 1ML VIAL ONE (15:28)
[2023-09-24] MEDS ORDERED: VERAPAMIL 2.5MG/ML INJ 2ML VIAL IV ONE (15:28)
[2023-09-24] MEDS ORDERED: ANGIOMAX 250 MG VIAL IV ONE (15:28)
[2023-09-24] MEDS ORDERED: fentaNYL CITRATE 100 MCG/2 ML VL ONE (15:28)
[2023-09-24] MEDS ORDERED: MIDAZOLAM HCL 2MG/2ML 2ml VIAL (1mg/ml) ONE (15:28)
[2023-09-24] MEDS ORDERED: IODIXANOL 320MG/ML 100ML BTL IV ONE ×2 (15:29→17:12)
[2023-09-24] MEDS ORDERED: SODIUM CHL 0.9% 50 ML ONE (15:29)
[2023-09-24] MEDS ORDERED: LIDOCAINE 2%HCL (LOCAL ANESTH.) INJ 20ML MDV ONE (15:29)
[2023-09-24] MEDS ORDERED: hydrALAZINE HCL 20 MG/ML VL ONE (17:05)
== END 2023-09-24 19:35 | disposition home or self-care (01) ==
LOC: CATH 10:03
PROVIDERS: ATTEND Student in an Organized Health Care Education/Training Program
DX: R07.9 Chest pain, unspecified (principal); I25.10 Atherosclerotic heart disease of native coronary artery without angina pectoris; I50.30 Unspecified diastolic (congestive) heart failure; R06.02 Shortness of breath; R94.39 Abnormal result of other cardiovascular function study; I25.2 Old myocardial infarction; E11.51 Type 2 diabetes mellitus with diabetic peripheral angiopathy without gangrene; Z89.511 Acquired absence of right leg below knee; Z95.5 Presence of coronary angioplasty implant and graft; Z88.0 Allergy status to penicillin; Z88.1 Allergy status to other antibiotic agents; Z88.6 Allergy status to analgesic agent
CPT/HCPCS: 36415; 80053; 85025; 85610; 85730; 93458; C1769; C1894; J0360; J0583; J1644; J2250; J3010; J7030; Q9967; 99152